=== PATIENT | male | born 1960 | race Caucasian/White ===

== ENCOUNTER 2017-05-01 09:16 | Emergency (ER) | payer BC ==
--- NOTE | 2017-05-01 09:25 | UC ---
Abdominal Pain Male HPI - HPI Summary HPI Summary: 56 YEAR OLD MALE PRESENTS WITH SEVERE LEFT FLANK PAIN. - History of Current Complaint Chief Complaint: UCGU Stated Complaint: ABDOMINAL PAIN Time Seen by Provider: 05/01/17 09:24 Severity Initially: Severe Severity Currently: Severe Pain Scale Used: 0-10 Numeric - 9/10 - Allergies/Home Medications Allergies/Adverse Reactions: Allergies Allergy/AdvReac Type Severity Reaction Status Date / Time Amlodipine [From [facility]] AdvReac Unknown Edema Verified 05/01/17 11:12 PMH/Surg Hx/FS Hx/Imm Hx - Surgical History Surgical History: Yes Surgery Procedure, Year, and Place: RIGHT KNEE ARTHROSCOPES X 3; bowel surgery endometrial reattachment; T&A; CARDIAC STENTS X 2- PATIENT WILL BRING CARDS TO BE SCANNED IN (PER CARDIAC CATH REPORT A PROMUS PREMIER STENT AND A PROMUS ELEMENT STENT WERE PLACED) - Social History Alcohol Use: Weekly Alcohol Amount: 2-3 DRINKS/WEEK Substance Use Type: None Smoking Status (MU): Former Smoker Type: Cigarettes Length of Time of Smoking/Using Tobacco: 15 years Have You Smoked in the Last Year: No When Did the Patient Quit Smoking/Using Tobacco: 25 YRS AGO - Immunization History Most Recent Influenza Vaccination: 08/31/14 Most Recent Tetanus Shot: thirty years ago Most Recent Pneumonia Vaccination: no Vaccination Up to Date: Yes Review of Systems Constitutional: Negative Skin: Negative Eyes: Negative ENT: Negative Respiratory: Negative Cardiovascular: Negative Gastrointestinal: Abdominal Pain Genitourinary: Negative Motor: Negative Neurovascular: Negative Musculoskeletal: Negative Neurological: Negative Psychological: Negative All Other Systems Reviewed And Are Negative: Yes Physical Exam Triage Information Reviewed: Yes Vital Signs: Initial Vital Signs Temp 35.7 C 05/01/17 09:19 Pulse 62 05/01/17 09:19 Resp 20 05/01/17 09:19 BP 156/88 05/01/17 09:19 Pulse Ox 99 05/01/17 09:19 Eye Exam: Normal ENT Exam: Normal Dental Exam: Normal Neck exam: Normal Neck: Positive: 1 Respiratory Exam: Normal Cardiovascular Exam: Normal Abdominal Exam: Normal Abdomen Description: Positive: CVA Tenderness (L), Guarding Musculoskeletal Exam: Normal Neurological Exam: Normal Psychological Exam: Normal Skin Exam: Normal Abd Pain Male Course/Dx - Differential Dx/Clinical Impression Provider Diagnoses: LEFT FLANK PAIN Discharge - Discharge Plan Condition: Guarded Disposition: TRANS HIGHER LVL OF CARE FAC Patient Education Materials: Kidney Stones (ED) Referrals: Michael Velasquez MD [Primary Care Provider] -
[2017-05-01 09:40] VITALS: BP 174/102
== END 2017-05-01 09:50 | disposition short-term general hospital (02) ==
LOC: UCEAST 09:16
DX: R10.9 Unspecified abdominal pain (principal); Z87.891 Personal history of nicotine dependence
CPT/HCPCS: 99214; G0463

== ENCOUNTER 2017-05-01 10:15 | Emergency (ER) | payer BC ==
[2017-05-01] MEDS ORDERED: HYDROmorphone* 1 MG/ML 1 ML SYR IV SLOW PU ONE (10:40)
[2017-05-01] MEDS ORDERED: Ketorolac INJ* 30 MG/ML 1 ML VIAL IV PUSH ONE (10:45)
[2017-05-01] MEDS ORDERED: Ondansetron INJ* 2 MG/ML VIAL IV ONE (10:45)
[2017-05-01] MEDS ORDERED: Ondansetron INJ* 2 MG/ML VIAL ONE (10:46)
[2017-05-01] MEDS ORDERED: Ketorolac INJ* 30 MG/ML 1 ML VIAL ONE (10:46)
[2017-05-01] MEDS: NS 0.9% 1000 ML* 2,000 ML IV ONE ×2 (10:47→11:27)
[2017-05-01 11:18] LABS: Hematocrit 45 % (42-52); Hemoglobin 14.6 g/dl (14.0-18.0); Mean Corpuscular HGB Conc 33 g/dl (31-36); Mean Corpuscular Hemoglobin 34 pg (27-31); Mean Corpuscular Volume 102 fL (80-94); Mean Platelet Volume 8 um3 (7.4-10.4); Red Blood Count 4.36 10^6/ul (4.0-5.4); Red Cell Distribution Width 14 % (10.5-15); White Blood Count 9.1 10^3/ul (3.5-10.8)
[2017-05-01 11:33] LABS: Albumin 4.4 g/dL (3.2-5.2); BUN/Creatinine Ratio 19.7 (8-20); Calcium 9.5 mg/dL (8.6-10.3); EGFR African American 68.9 (>60); EGFR Non-African American 53.6 (>60); Globulin 2.7 g/dL (2-4); Potassium 3.9 mmol/L (3.5-5.0); Total Bilirubin 0.7 mg/dL (0.2-1.0); Total Protein 7.1 g/dL (6.4-8.9)
--- NOTE | 2017-05-01 11:40 | RAD ---
INDICATION: Left flank pain COMPARISON: CT June 30, 2015 TECHNIQUE: Noncontrast axial source images were acquired from the level hemidiaphragms to the symphysis pubis as part of CT imaging for renal stone. Lung bases: The lung bases are clear. Liver: The liver is enlarged with findings of hepatic steatosis. Noncontrast imaging shows no evidence of a hepatic mass or ductal dilatation. Gallbladder: There are no calcified gallstones. There is no evidence of wall thickening or pericholecystic fluid.. Spleen: The spleen is normal in size. The noncontrast CT appearance is normal. There is a small splenule Pancreas: Noncontrast imaging shows no pancreatic mass or ductal dilitation. Adrenal glands: No masses are identified. Kidneys/Bladder: There is a proximal, 4 mm, left ureteral calculus producing mild to moderate obstructive findings. There are no other microcalcifications of urinary significance. There is mild left-sided perinephric stranding. Adenopathy: There is no evidence of intraperitoneal or retroperitoneal adenopathy. Evaluation is limited without oral contrast. Fluid collections: There are no free or localized fluid collections. Vessels: The aorta and iliac vessels are normal in caliber. There are no significant atherosclerotic changes. The IVC appears normal Pelvic organs: The prostate and seminal vesicles appear normal GI tract: Evaluation of the bowel is limited without oral contrast. The stomach and upper GI tract are unremarkable. The lower GI tract is remarkable for scattered diverticula of the sigmoid colon. There are no obstructive findings. The appendix is visualized and appears normal. Soft tissues: No soft tissue abnormalities of the extraperitoneal abdomen or pelvis are identified. Osseous structures: There are no acute osseous findings. There is chronic L5 spondylolysis with a minimal anterolisthesis. There is degenerative disc disease at L5-S1. There is spurring about the thoracolumbar junction. IMPRESSION: 4 MM PROXIMAL LEFT URETERAL CALCULUS WITH MILD/MODERATE OBSTRUCTIVE FINDINGS.
--- NOTE | 2017-05-01 12:29 | ED ---
GI/ HPI - HPI Summary HPI Summary: 56M w/ [place] of [place] presents with left side flank pain for a day. He admits to intense pain. He has a history of kidney stones. He denies any fever, dysuria, hematuria, frequency, urgency. He denies any diarrhea, constipation. He has a previous bowel obstruction that needed surgery pain years ago. The pain is similar to when has kidney stones in past. He admits to vomiting and nausea. - History of Current Complaint Chief Complaint: EDFlankPain Time Seen by Provider: 05/01/17 10:39 Stated Complaint: ABD PAIN - Allergy/Home Medications Allergies/Adverse Reactions: Allergies Allergy/AdvReac Type Severity Reaction Status Date / Time Amlodipine [From [facility]] AdvReac Unknown Edema Verified 05/01/17 11:12 PMH/Surg Hx/FS Hx/Imm Hx Endocrine/Hematology History: Denies: Hx Diabetes Cardiovascular History: Reports: Hx Angina, Hx Coronary Artery Disease, Hx Hypercholesterolemia, Hx Hypertension Denies: Hx Congestive Heart Failure, Hx Pacemaker/ICD Respiratory History: Reports: Hx Asthma - poss recent diagnosis, Hx Seasonal Allergies - "constant", Hx Sleep Apnea, Other Respiratory Problems/Disorders - ex-smoker GI History: Reports: Hx Obstructive Bowel Denies: Hx Ulcer History: Reports: Hx Kidney Stones Denies: Hx Acute Renal Failure, Hx Renal Disease Musculoskeletal History: Reports: Hx Arthritis - knees, back, hands, Hx Rheumatoid Arthritis, Hx Back Problems - fractures, degenerated disks, bone spurs, Hx Tendonitis - elbow Denies: Hx Scoliosis Sensory History: Reports: Hx Contacts or Glasses Denies: Hx Cataracts Opthamlomology History: Reports: Hx Contacts or Glasses Denies: Hx Cataracts Neurological History: Reports: Other Neuro Impairments/Disorders - PAIN CLINIC PT Denies: Hx Developmental Delay, Hx Headaches, Hx Migraine, Hx Nerve Disease, Hx Seizures, Hx Spinal Cord Injury, Hx Transient Ischemic Attacks (TIA) Psychiatric History: Denies: Hx Panic Disorder - Surgical History Surgery Procedure, Year, and Place: RIGHT KNEE ARTHROSCOPES X 3; bowel surgery endometrial reattachment; T&A; CARDIAC STENTS X 2- PATIENT WILL BRING CARDS TO BE SCANNED IN (PER CARDIAC CATH REPORT A PROMUS PREMIER STENT AND A PROMUS ELEMENT STENT WERE PLACED) Hx Anesthesia Reactions: No Infectious Disease History: No Infectious Disease History: Denies: Hx Clostridium Difficile, Hx Hepatitis, Hx Human Immunodeficiency Virus (HIV), Hx of Known/Suspected MRSA, Hx Shingles, Hx Tuberculosis, Hx Known/ Suspected VRE, Hx Known/Suspected VRSA, History Other Infectious Disease, Traveled Outside the [place] in Last 30 Days - Family History Known Family History: Positive: Cardiac Disease - Social History Alcohol Use: Weekly Alcohol Amount: 2-3 DRINKS/WEEK Substance Use Type: Reports: None Smoking Status (MU): Former Smoker Type: Cigarettes Length of Time of Smoking/Using Tobacco: 15 years Have You Smoked in the Last Year: No Review of Systems Negative: Fever Negative: Chest Pain Negative: Shortness Of Breath Positive: Vomiting, Nausea. Negative: Abdominal Pain, Diarrhea Positive: flank pain. Negative: dysuria, frequency All Other Systems Reviewed And Are Negative: Yes Physical Exam Triage Information Reviewed: Yes Vital Signs On Initial Exam: Initial Vitals Temp Pulse Resp BP Pulse Ox 96.7 F 68 12 153/106 99 05/01/17 10:15 05/01/17 10:15 05/01/17 10:15 05/01/17 10:15 05/01/17 10:15 Vital Signs Reviewed: Yes Appearance: Positive: Pain Distress Skin: Positive: Warm, Dry Head/Face: Positive: Normal Head/Face Inspection Eyes: Positive: Normal, Conjunctiva Clear ENT: Positive: Normal ENT inspection, Pharynx normal, TMs normal Respiratory/Lung Sounds: Positive: Clear to Auscultation, Breath Sounds Present Cardiovascular: Positive: Normal, RRR Abdomen Description: Positive: Soft, CVA Tenderness (L), Other: - tenderness on left side of abdomen Bowel Sounds: Positive: Present - [place] Coma Scale Coma Scale Total: 15 Diagnostics - Vital Signs Vital Signs Temp Pulse Resp BP Pulse Ox 05/01/17 11:02 95 05/01/17 11:01 93 05/01/17 11:00 71 17 147/119 98 05/01/17 10:50 81 05/01/17 10:47 20 05/01/17 10:33 71 22 143/92 99 05/01/17 10:20 65 153/106 100 05/01/17 10:15 96.7 F 68 12 153/106 99 - Laboratory Lab Results: Lab Results 05/01/17 05/01/17 Range/Units 11:05 11:05 WBC 9.1 (3.5-10.8) 10^3/ul RBC 4.36 (4.0-5.4) 10^6/ul Hgb 14.6 (14.0-18.0) g/dl Hct 45 (42-52) % MCV 102 H (80-94) fL MCH 34 H (27-31) pg MCHC 33 (31-36) g/dl RDW 14 (10.5-15) % Plt Count 189 (150-450) 10^3/ul MPV 8 (7.4-10.4) um3 Neut % (Auto) 87.1 H (38-83) % Lymph % (Auto) 8.7 L (25-47) % [place] % (Auto) 3.7 (1-9) % Eos % (Auto) 0.1 (0-6) % Baso % (Auto) 0.4 (0-2) % Absolute Neuts (auto) 7.9 H (1.5-7.7) 10^3/ul Absolute Lymphs (auto) 0.8 L (1.0-4.8) 10^3/ul Absolute Monos (auto) 0.3 (0-0.8) 10^3/ul Absolute Eos (auto) 0 (0-0.6) 10^3/ul Absolute Basos (auto) 0 (0-0.2) 10^3/ul Absolute Nucleated RBC 0.01 10^3/ul Nucleated RBC % 0.1 Sodium 140 (133-145) mmol/L Potassium 3.9 (3.5-5.0) mmol/L Chloride 104 (101-111) mmol/L Carbon Dioxide 25 (22-32) mmol/L Anion Gap 11 (2-11) mmol/L BUN 27 H (6-24) mg/dL Creatinine 1.37 H (0.67-1.17) mg/dL Est GFR ( Amer) 68.9 (>60) Est GFR (Non-Af Amer) 53.6 (>60) BUN/Creatinine Ratio 19.7 (8-20) Glucose 172 H (70-100) mg/dL Calcium 9.5 (8.6-10.3) mg/dL Total Bilirubin 0.70 (0.2-1.0) mg/dL AST 32 (13-39) U/L ALT 34 (7-52) U/L Alkaline Phosphatase 41 (34-104) U/L C-React Prot High Sens 1.65 mg/L Total Protein 7.1 (6.4-8.9) g/dL Albumin 4.4 (3.2-5.2) g/dL Globulin 2.7 (2-4) g/dL Albumin/Globulin Ratio 1.6 (1-3) Lipase 24 (11.0-82.0) U/L Result Diagrams: 05/01/17 11:05 05/01/17 11:05 Lab Statement: Any lab studies that have been ordered have been reviewed, and results considered in the medical decision making process. - CT abd CT Interpretation: Positive (See Comments) - IMPRESSION: 4 MM PROXIMAL LEFT URETERAL CALCULUS WITH MILD/MODERATE OBSTRUCTIVE FINDINGS. CT Interpretation Completed By: Radiologist Re-Evaluation - Re-Evaluation First Eval Change: Improved Comment: pain improved with dilaudid and morphine. dilaudid did call O2 stats to dec GIGU Course/Dx - Course Course Of Treatment: 56M w/ [place] of [place] presents with left side flank pain for a day. He admits to intense pain. He has a history of kidney stones. He denies any fever, dysuria, hematuria, frequency, urgency. He denies any diarrhea, constipation. He has a previous bowel obstruction that needed surgery pain years ago. The pain is similar to when has kidney stones in past. He admits to vomiting and nausea. CVA tenderness on left. CT shows 4mm stone. discussed dr hamilton says send home with pain meds and call office tomorrow. pain controlled. u/a normal. patient understands and agrees with plan - Diagnoses Differential Diagnoses - Male: Pyelonephritis, Ureteral Calculi, Urinary Tract Infection Provider Diagnoses: Kidney stone on left side Discharge - Discharge Plan Condition: Good Disposition: HOME Prescriptions: Ondansetron ODT TAB* [Zofran 4 MG Odt TAB*] 4 mg PO Q6H PRN #20 tab.odt PRN Reason: Nausea Tamsulosin CAP* [Flomax CAP*] 0.4 mg PO DAILY #10 cap oxyCODONE/Acetamin 5/325 MG* [Percocet 5/325 TAB*] 1 tab PO Q4H PRN #24 tab MDD 6 PRN Reason: Pain Patient Education Materials: Kidney Stones (ED) Referrals: Ross Hamilton MD [Medical Doctor] - Michael Velasquez MD [Primary Care Provider] - Additional Instructions: Take ibuprofen three times a day and narcotic as needed every 4-6 hours up two tablets Narcotic will make constipated Take Zofran every 6 hours for nausea Take Flomax daily starting tomorrow, first dose given in ED until stone expelled , make sure stand up slowly Strain urine for stone Call office tomorrow for urology follow up Return to ED if unable to manage pain at home, develop fever, severe vomiting or any new or worsening symptoms
[2017-05-01] MEDS ORDERED: Morphine INJ* 4 MG/ML 1 ML SYRINGE IV ONE (12:39)
[2017-05-01 13:22] LABS: Urine Bacteria Absent (Absent); Urine Bilirubin Negative (Negative); Urine Glucose 1+(50 mg/dL) (Negative); Urine Nitrite Negative (Negative)
[2017-05-01 13:29] VITALS: BP 148/96
== END 2017-05-01 13:57 | disposition home or self-care (01) ==
LOC: ED 10:15
DX: N20.0 Calculus of kidney (principal); Z87.891 Personal history of nicotine dependence; I10 Essential (primary) hypertension; I25.119 Atherosclerotic heart disease of native coronary artery with unspecified angina pectoris; J45.909 Unspecified asthma, uncomplicated
CPT/HCPCS: 36415; 74176; 80053; 81003; 81015; 83690; 85025; 86141; 93005; 96360; 96374; 96375; 99283; J1170; J1885; J2270; J2405

== ENCOUNTER 2017-05-03 20:05 | Emergency (ER) | payer BC ==
[2017-05-03] MEDS ORDERED: NS 0.9% 1000 ML* 1,000 ML IV ONE (20:38)
[2017-05-03] MEDS ORDERED: Ketorolac INJ* 30 MG/ML 1 ML VIAL IV ONE (20:38)
[2017-05-03 21:01] LABS: Hematocrit 41 % (42-52); Hemoglobin 13.8 g/dl (14.0-18.0); Mean Corpuscular HGB Conc 34 g/dl (31-36); Mean Corpuscular Hemoglobin 34 pg (27-31); Mean Corpuscular Volume 100 fL (80-94); Mean Platelet Volume 9 um3 (7.4-10.4); Red Blood Count 4.09 10^6/ul (4.0-5.4); Red Cell Distribution Width 14 % (10.5-15); White Blood Count 12.1 10^3/ul (3.5-10.8)
[2017-05-03 21:15] LABS: Urine Bacteria Absent (Absent); Urine Bilirubin Negative (Negative); Urine Glucose 1+(50 mg/dL) (Negative); Urine Nitrite Negative (Negative)
[2017-05-03 21:17] LABS: ALT 23 U/L (7-52); Albumin 4.1 g/dL (3.2-5.2); Alkaline Phosphatase 44 U/L (34-104); BUN/Creatinine Ratio 16.9 (8-20); Blood Urea Nitrogen 31 mg/dL (6-24); CO2 Carbon Dioxide 28 mmol/L (22-32); Calcium 9.5 mg/dL (8.6-10.3); Chloride 100 mmol/L (101-111); EGFR African American 49.3 (>60); EGFR Non-African American 38.3 (>60); Globulin 3.1 g/dL (2-4); Glucose 153 mg/dL (70-100); Sodium 136 mmol/L (133-145); Total Protein 7.2 g/dL (6.4-8.9)
[2017-05-03 21:26] LABS: Anion Gap 8 mmol/L (2-11)
--- NOTE | 2017-05-03 21:30 | ED ---
I, Oh,Kayla, scribed for Gary Bright MD on 05/03/17 at 2043 . GI/ HPI - HPI Summary HPI Summary: This 56 y/o male presents to ED for persistent left flank pain that occurred since 2 days ago and is worse since 1500 PM today. He previously visited ED 2 days ago and dx with kidney stone. Pt admits that he did not take pain med that was rx because of positive constipation. He did take IBP at 1500 PM today. PMHx includes recent dx of kidney stone, HTN, bowel obstruction x2, DE s/p cardiac stent. Plan of care involving pain control and possible transfer to higher care facility with urologist's service is discussed with patient. - History of Current Complaint Chief Complaint: EDFlankPain Time Seen by Provider: 05/03/17 20:25 Stated Complaint: FLANK PAIN Hx Obtained From: Patient, Medical Records Onset/Duration: Started Hours Ago, Atraumatic, Still Present Timing: Constant Pain Intensity: 9 Location of Pain: Flank Associated Signs and Symptoms: Positive: Constipation, Flank Pain - left Aggravating Factor(s): Nothing Alleviating Factor(s): Nothing - Allergy/Home Medications Allergies/Adverse Reactions: Allergies Allergy/AdvReac Type Severity Reaction Status Date / Time Amlodipine [From Norvasc] AdvReac Unknown Edema Verified 05/01/17 11:12 PMH/Surg Hx/FS Hx/Imm Hx Endocrine/Hematology History: Denies: Hx Diabetes Cardiovascular History: Reports: Hx Angina, Hx Coronary Artery Disease, Hx Hypercholesterolemia, Hx Hypertension Denies: Hx Congestive Heart Failure, Hx Pacemaker/ICD Respiratory History: Reports: Hx Asthma - poss recent diagnosis, Hx Seasonal Allergies - "constant", Hx Sleep Apnea, Other Respiratory Problems/Disorders - ex-smoker GI History: Reports: Hx Obstructive Bowel Denies: Hx Ulcer History: Reports: Hx Kidney Stones Denies: Hx Acute Renal Failure, Hx Renal Disease Musculoskeletal History: Reports: Hx Arthritis - knees, back, hands, Hx Rheumatoid Arthritis, Hx Back Problems - fractures, degenerated disks, bone spurs, Hx Tendonitis - elbow Denies: Hx Scoliosis Sensory History: Reports: Hx Contacts or Glasses Denies: Hx Cataracts Opthamlomology History: Reports: Hx Contacts or Glasses Denies: Hx Cataracts Neurological History: Reports: Other Neuro Impairments/Disorders - PAIN CLINIC PT Denies: Hx Developmental Delay, Hx Headaches, Hx Migraine, Hx Nerve Disease, Hx Seizures, Hx Spinal Cord Injury, Hx Transient Ischemic Attacks (TIA) Psychiatric History: Denies: Hx Panic Disorder - Surgical History Surgery Procedure, Year, and Place: RIGHT KNEE ARTHROSCOPES X 3; bowel surgery endometrial reattachment; T&A; CARDIAC STENTS X 2- PATIENT WILL BRING CARDS TO BE SCANNED IN (PER CARDIAC CATH REPORT A PROMUS PREMIER STENT AND A PROMUS ELEMENT STENT WERE PLACED) Hx Anesthesia Reactions: No Infectious Disease History: No Infectious Disease History: Denies: Hx Clostridium Difficile, Hx Hepatitis, Hx Human Immunodeficiency Virus (HIV), Hx of Known/Suspected MRSA, Hx Shingles, Hx Tuberculosis, Hx Known/ Suspected VRE, Hx Known/Suspected VRSA, History Other Infectious Disease, Traveled Outside the US in Last 30 Days - Family History Known Family History: Positive: Cardiac Disease - Social History Alcohol Use: Weekly Alcohol Amount: 2-3 DRINKS/WEEK Hx Substance Use: No Substance Use Type: Reports: None Hx Tobacco Use: Yes Smoking Status (MU): Former Smoker Type: Cigarettes Length of Time of Smoking/Using Tobacco: 15 years Have You Smoked in the Last Year: No Review of Systems Negative: Fever Positive: Other - Positive constipation Positive: flank pain - left All Other Systems Reviewed And Are Negative: Yes Physical Exam Triage Information Reviewed: Yes Vital Signs On Initial Exam: Initial Vitals Temp Pulse Resp BP Pulse Ox 98.3 F 89 18 146/93 94 05/03/17 20:16 05/03/17 20:16 05/03/17 20:16 05/03/17 20:16 05/03/17 20:16 Vital Signs Reviewed: Yes Appearance: Positive: Well-Appearing, Pain Distress - moderate discomfort Skin: Positive: Warm Eyes: Positive: SHIRIN ENT: Positive: Hearing grossly normal Neck: Positive: Supple Respiratory/Lung Sounds: Positive: Clear to Auscultation, Breath Sounds Present Cardiovascular: Positive: RRR Abdomen Description: Positive: Nontender, Soft Bowel Sounds: Positive: Present Musculoskeletal: Positive: Strength/ROM Intact Neurological: Positive: Alert, Oriented to Person Place, Time Psychiatric: Positive: Affect/Mood Appropriate Diagnostics - Vital Signs Vital Signs Temp Pulse Resp BP Pulse Ox 05/03/17 20:16 98.3 F 89 18 146/93 94 - Laboratory Lab Results: Lab Results 0705/03/17 05/03/17 Range/Units 20:55 20:55 21:04 WBC 12.1 H (3.5-10.8) 10^3/ul RBC 4.09 (4.0-5.4) 10^6/ul Hgb 13.8 L (14.0-18.0) g/dl Hct 41 L (42-52) % MCV 100 H (80-94) fL MCH 34 H (27-31) pg MCHC 34 (31-36) g/dl RDW 14 (10.5-15) % Plt Count 204 (150-450) 10^3/ul MPV 9 (7.4-10.4) um3 Neut % (Auto) 85.6 H (38-83) % Lymph % (Auto) 6.3 L (25-47) % [place] % (Auto) 7.8 (1-9) % Eos % (Auto) 0.1 (0-6) % Baso % (Auto) 0.2 (0-2) % Absolute Neuts (auto) 10.3 H (1.5-7.7) 10^3/ul Absolute Lymphs (auto) 0.8 L (1.0-4.8) 10^3/ul Absolute Monos (auto) 0.9 H (0-0.8) 10^3/ul Absolute Eos (auto) 0 (0-0.6) 10^3/ul Absolute Basos (auto) 0 (0-0.2) 10^3/ul Absolute Nucleated RBC 0 10^3/ul Nucleated RBC % 0 Sodium 136 (133-145) mmol/L Potassium TNP Chloride 100 L (101-111) mmol/L Carbon Dioxide 28 (22-32) mmol/L Anion Gap 8 (2-11) mmol/L BUN 31 H (6-24) mg/dL Creatinine 1.83 H (0.67-1.17) mg/dL Est GFR ( Amer) 49.3 (>60) Est GFR (Non-Af Amer) 38.3 (>60) BUN/Creatinine Ratio 16.9 (8-20) Glucose 153 H (70-100) mg/dL Calcium 9.5 (8.6-10.3) mg/dL Total Bilirubin 0.70 (0.2-1.0) mg/dL AST TNP ALT 23 (7-52) U/L Alkaline Phosphatase 44 (34-104) U/L Total Protein 7.2 (6.4-8.9) g/dL Albumin 4.1 (3.2-5.2) g/dL Globulin 3.1 (2-4) g/dL Albumin/Globulin Ratio 1.3 (1-3) Urine Color Yellow Urine Appearance Clear Urine pH 6.0 (5-9) Ur Specific [place] 1.017 (1.010-1.030) Urine Protein Negative (Negative) Urine Ketones Trace H (Negative) Urine Blood 1+ H (Negative) Urine Nitrate Negative (Negative) Urine Bilirubin Negative (Negative) Urine Urobilinogen Negative (Negative) Ur Leukocyte Esterase Negative (Negative) Urine WBC (Auto) Absent (Absent) Urine RBC (Auto) 1+(3-5/hpf) H (Absent) Urine Bacteria Absent (Absent) Urine Glucose 1+(50 mg/dl) H (Negative) Urine Ascorbic Acid * H (Negative) Result Diagrams: 05/03/17 20:55 05/03/17 21:39 Lab Statement: Any lab studies that have been ordered have been reviewed, and results considered in the medical decision making process. - Additional Comments Diagnostic Additional Comments: US Renal -- Left hydronephrosis. An absent ureteral jet suggested left ureteral obstruction. Re-Evaluation - Re-Evaluation First Eval Re-Evaluation Time: 23:45 Comment: MD in room to update pt on US renal imaging results. Plan of care involving transfer for urology workup is discussed with pt, and he is agreeable at this moment. GIGU Course/Dx - Course Course Of Treatment: Consult: 0012 Dr. Keller (Urology at [place]). 0034 Dr. Gutierrez, accepting doctor at [place], [place] Assessment/Plan: This 56 y/o male presents to ED for persistent left flank pain since his last ED visit for kidney stone. He admits that he did not take pain med that has been prescribed to him because of constipation. Pt is given IV NS and IV toradol for pain control. UA indicates trace ketone, 1+ blood and RBC. Blood work is wnl except for elevated WBC of 12.1, Creatinine of 1.83, and BUN of 31. US renal indicates left ureteral obstruction. Since urology is not present on-call today, plan of care involving transfer to [facility] in [place] is discussed with pt, and he is agreeable at this moment. Dr. Gutierrez is accepting doctor at [facility] in [place]. 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 - Urologist is not electrical engineering draftsperson. Discharge - Discharge Plan Condition: Fair Disposition: TRANS HIGHER LVL OF CARE FAC Referrals: Michael Velasquez MD [Primary Care Provider] - The documentation as recorded by the Ilya castillo Soohyun accurately reflects the service I personally performed and the decisions made by me, Gary Bright MD.
[2017-05-04 01:50] VITALS: BP 139/87
--- NOTE | 2017-05-04 07:42 | RAD ---
HISTORY: Left flank pain COMPARISONS: CT dated May 01, 2017 TECHNIQUE: Multiple transverse and longitudinal ultrasound images were obtained of the kidneys and bladder using grayscale and color Doppler imaging. FINDINGS: RIGHT KIDNEY: The right kidney is normal in shape, size, contour, and echogenicity. There is no hydronephrosis or nephrolithiasis. The right kidney measures 14.5 x 5.7 x 6.2 cm. LEFT KIDNEY: The left kidney is normal in shape, size, contour, and echogenicity. There is moderate pelvocaliectasis, similar to the CT of May 01, 2017 accounting for differences in technique . The left kidney measures 14.5 x 7.2 x 7 cm. BLADDER: The left ureteral jet is not visualized. AORTA AND IVC: No images are submitted of the vasculature. RETROPERITONEUM: Unremarkable. OTHER: None. IMPRESSION: MODERATE LEFT-SIDED HYDRONEPHROSIS. A LEFT URETERAL JET IS NOT VISUALIZED.
== END 2017-05-04 01:51 | disposition short-term general hospital (02) ==
LOC: ED 20:05
DX: N23 Unspecified renal colic (principal); I10 Essential (primary) hypertension; I25.2 Old myocardial infarction; Z87.891 Personal history of nicotine dependence
CPT/HCPCS: 36415; 76775; 80053; 81003; 81015; 85025; 99284; J1885

== ENCOUNTER 2018-08-21 08:38 | Day surgery (SDC) | payer BC ==
--- NOTE | 2018-08-16 18:57 | HP ---
CC: Dr. Velasquez; Dr. Meza * ADMITTING HISTORY AND PHYSICAL: DATE OF ADMISSION: 08/21/18 ADMITTING DIAGNOSES: 1. Gross hematuria. 2. Left flank pain. 3. Left renal calculi. PLANNED PROCEDURE: 1. Left stent insertion. 2. Shock-wave lithotripsy of left renal calculi. SURGEON: Dr. Cox. HISTORY OF PRESENT ILLNESS: Lopez Trimble is a 58-year-old gentleman who has had episodic gross hematuria and also episodes of left flank pain off and on for the last 5 to 6 weeks. He had been on Coumadin when I had initially evaluated him and even off the Coumadin, he has had episodes of gross hematuria. Renal sonogram initially had revealed multiple left renal calculi and also a small calculus in the left distal ureter, which subsequently has passed. He is now being brought in for management of the left renal calculi. PAST MEDICAL HISTORY: Significant for: 1. Paroxysmal atrial fibrillation. 2. History of aortic valve disorder. 3. Acquired spondylolisthesis. 4. Obstructive sleep apnea. 5. Hypertension. 6. Impaired fasting glycemia. PAST SURGICAL HISTORY: Significant for: 1. Aortic valve replacement in February 2018 (bovine bioprosthetic valve). 2. Laparotomy for bowel disorder in 2003. MEDICATIONS ON ADMISSION: Include: 1. Carvedilol 25 mg twice a day. 2. Desloratadine 5 mg daily. 3. Potassium chloride 10 mEq every day. 4. Aspirin 81 mg a day. 5. Celebrex 200 mg daily. 6. Coumadin, which has recently been stopped after his most recent visit to his city assessor. 7. Amiodarone 200 mg daily. 8. Losartan potassium/hydrochlorothiazide 160/25 one tablet daily. ALLERGIES AND INTOLERANCES: AMLODIPINE and COLCHICINE. SMOKING HISTORY: He is a former smoker who quit in 1990. PHYSICAL EXAMINATION GENERAL: Reveals a pleasant, middle-aged gentleman. VITAL SIGNS: Blood pressure is 142/86, pulse 63 per minute, oxygen saturation 97% on room air. LUNGS: Clear bilaterally. CARDIOVASCULAR EXAM: S1, S2. ABDOMEN: Soft with mild left flank tenderness. IMPRESSION: A 58-year-old gentleman with episodic gross hematuria and episodic left flank pain. PLAN: Planned procedure is left stent insertion and shock-wave lithotripsy of left renal calculi. I have discussed the procedure in detail including possible risks of bleeding, infection, incomplete fragmentation, possible injury to the kidney. All his questions have been answered. Plan is left stent insertion and lithotripsy. [id number] #: [id number]
[~2018-08-21 08:38] MED LIST: Buffered Lidocaine 0.9% SYRIN* 5 ML/SYR SYRINGE INTRADERM ONE; Sodium Citrate/Citric Acid* 15 ML UDC PO ONE
[2018-08-21] MEDS ORDERED: Buffered Lidocaine 0.9% SYRIN* 5 ML/SYR SYRINGE ONE (09:19)
[2018-08-21] MEDS ORDERED: cefTRIAXone(*) 2 GM ADDV.VIAL IVPB ONE (09:19)
[2018-08-21] MEDS ORDERED: Sodium Citrate/Citric Acid* 15 ML UDC ONE (09:19)
--- NOTE | 2018-08-21 09:21 | RAD ---
Indication: Lithotripsy. Flat and upright views of the abdomen demonstrates calcification overlying the lower pole of the left kidney. Psoas margins are intact. No organomegaly is noted. IMPRESSION: Calcification overlying the lower pole of the left kidney. This was not identified on August 14, 2018.
[2018-08-21 09:49] LABS: INR 1.02 (0.77-1.02)
[2018-08-21] MEDS ORDERED: Iohexol 180 (CONTRAST) 10 ML SDV IV ONE (10:35)
[2018-08-21] MEDS ORDERED: fentaNYL* 50 MCG/ML 2 ML VIAL (100 MCG VIAL) ONE (11:15)
[2018-08-21] MEDS ORDERED: Propofol* 10 MG/ML 20 ML BTL IV PUSH ONE ×2 (11:17→11:44)
[2018-08-21] MEDS ORDERED: Lidocaine 2% PF * 5 ML VIAL ONE (11:17)
[2018-08-21] MEDS ORDERED: Furosemide IV* 10 MG/ML 2 ML VIAL (20 MG) ONE (11:20)
[2018-08-21] MEDS ORDERED: Iohexol 300 (CONTRAST) 100 ML SDV IV ONE ×2 (11:46→12:07)
[2018-08-21] MEDS ORDERED: Diatrizoate -DILUTE(CONTRAST) 300 ML BOTTLE BLADDER ONE ×2 (11:48)
[2018-08-21] MEDS ORDERED: Naloxone* 0.4 MG/ML 1 ML VIAL IV PRN (12:20)
[2018-08-21] MEDS ORDERED: oxyCODONE/Acetamin 5/325 MG* TAB PO PRN ×2 (13:21)
[2018-08-21] MEDS ORDERED: LR @ 150 MLS/HR IV SCH (14:00)
[2018-08-21] MEDS ORDERED: Gentamicin ADULT (*) 160 MG in NS 0.9% 100 ML* 100 ML IVPB ONE (14:00)
[2018-08-21] MEDS ORDERED: Labetalol IV* 5 MG/ML 20 ML VIAL ONE (14:14)
[2018-08-21] MEDS ORDERED: Acetaminophen TAB* 325 MG ONE (14:14)
[2018-08-21] MEDS ORDERED: hydrALAZINE IV* 20 MG/ML VIAL ONE (15:11)
[2018-08-21 15:59] VITALS: BP 147/86
--- NOTE | 2018-08-21 16:29 | RAD ---
HISTORY: post op COMPARISONS: August 21, 2013 at 8:30 AM VIEWS: Frontal views of the abdomen. FINDINGS: BOWEL: There is a nonspecific bowel gas pattern, with nondilated small bowel gas noted. CALCULI: The left calculus noted on the previous examination is not clearly visualized, though evaluation is limited by lung bowel. There has been interval placement of left ureteral stent. BONES AND SOFT TISSUES: Mild degenerative changes are noted. OTHER FINDINGS: The lung bases are clear. There is no subphrenic gas. IMPRESSION: LEFT URETERAL STENT
--- NOTE | 2018-08-22 04:58 | OP ---
DATE OF OPERATION: 08/21/18 - [facility] DATE OF : 58 SURGEON: Jatinder Cox MD ANESTHESIOLOGIST: Tesfaye Reddy DO ANESTHESIA: General. PRE-OP DIAGNOSES: 1. Left renal calculus. 2. Gross hematuria. POST-OP DIAGNOSES: 1. Left renal calculus. 2. Gross hematuria. OPERATIVE PROCEDURE: 1. Cystoscopy, left retrograde pyelogram, and left stent insertion. 2. Shockwave lithotripsy of left renal calculus. INDICATIONS: Lopez Trimble is a 58-year-old gentleman, who has had episodic gross hematuria secondary to left renal calculi. He is now being brought in for treatment of the same. I have discussed the procedure of lithotripsy in detail including possible risks of bleeding, infection, incomplete fragmentation , and possible injury to the kidney. He appears to understand and wishes to proceed as planned. COMPLICATIONS: None. POSTOPERATIVE CONDITION: Stable. STENT USED: 8-Samoan stent, left ureter. DESCRIPTION OF PROCEDURE: After induction of general anesthesia, the patient was placed in dorsal lithotomy position. Sequential compression devices were in place and functioning. Initial cystoscopy revealed a normal appearing urethra , a mildly enlarged prostate, and a normal appearing bladder. There was a small benign appearing protuberance noted in the mid trigone, but no evidence of any suspicious bladder lesions noted. Left retrograde pyelogram revealed a filling defect in the left renal pelvis consistent with the calculus. An 8-Samoan stent was introduced and positioned under fluoroscopy with good proximal and distal positioning obtained. Next, the patient was placed on the lithotripsy table in supine position. The calculus which was within the loop of the stent was localized using fluoroscopy and shockwave lithotripsy was commenced at a rate of 60 shocks per minute. After the initial 300 shocks, there was pause in lithotripsy for several minutes in an effort to minimize any potential trauma to the kidney. Lithotripsy was then resumed and periodic imaging revealed good localization and fragmentation. A total of 1600 shocks were administered. The patient tolerated the procedure satisfactorily and was transferred back to the recovery area in stable condition. [id number] #: [id number] MTDD
== END 2018-08-21 16:13 | disposition home or self-care (01) ==
LOC: OR 08:38
PROVIDERS: ATTEND Urology
DX: N20.0 Calculus of kidney (principal); R31.0 Gross hematuria; I48.0 Paroxysmal atrial fibrillation; I10 Essential (primary) hypertension; G47.33 Obstructive sleep apnea (adult) (pediatric); R73.01 Impaired fasting glucose; I35.8 Other nonrheumatic aortic valve disorders; Z87.891 Personal history of nicotine dependence; Z79.01 Long term (current) use of anticoagulants
CPT/HCPCS: 36415; 74018; 85610; A9270-GY; C1876; J0360; J0696; J1580; J1940; J2704; J3010

== ENCOUNTER 2018-10-10 19:13 | Emergency (ER) | payer BC ==
--- OUTSIDE RECORDS SUMMARY | 2018-10-10 19:31 | XMS REPORT ---
:1960 External Reference #:[id number] Author Organization [facility] Address [address] [place] [address] Phone [phone] Care Team Providers Name Role Phone Michael Velasquez MD Primary Care Physician Unavailable Payers Type Date Identification Numbers Payment Provider Subscriber Commercial Effective: Policy Number: CORI Lenin Danielson 2015 [id number] PayID: [id number] [address] [address] [place] [address] Medigap Part B Effective: 2009 Policy Number: BS Jania KULDEEP Danielson [id number] Expires: 2011 PayID: [id number] [address] [address] [place] [address] Problems Date Description Provider Status Onset: 10/18/2011 Obesity Jes Galarza M.D. Active Onset: 10/18/2011 Benign essential hypertension Jes Galarza M.D. Active Onset: 10/18/2011 Disorder of lumbar disc Jes Galarza M.D. Active Onset: 10/18/2011 Allergic rhinitis Jes Galarza M.D. Active Onset: 06/13/2012 Mitral valve disorder Michael Velasquez M.D. Active Onset: 09/27/2012 Mixed hyperlipidemia Michael Velasquez M.D. Active Onset: 12/21/2013 Coronary arteriosclerosis Heena Meza M.D. Active Onset: 12/21/2013 Aortic valve disorder Heena Meza M.D. Active Onset: 12/24/2014 Old myocardial infarction Heena Meza M.D. Active Onset: 06/26/2015 Impaired fasting glycaemia Jes Galarza M.D. Active Onset: 06/26/2015 Impaired fasting glycaemia Jes Galarza M.D. Active Onset: 10/14/2015 Essential hypertension Heena Meza M.D. Active Onset: 11/28/2015 Degeneration of lumbar Michael Velasquez M.D. Active intervertebral disc Onset: 01/21/2016 Thoracic and lumbosacral neuritis Michael Velasquez M.D. Active Onset: 02/18/2016 Displacement of lumbar Seferino Peña M.D. Active intervertebral disc without myelopathy Onset: 02/18/2016 Acquired spondylolisthesis Seferino Peña M.D. Active Onset: 11/10/2016 Cervical disc disorder Michael Velasquez M.D. Active Onset: 11/10/2016 Disorder of skin AND/OR Michael Velasquez M.D. Active subcutaneous tissue Onset: 11/10/2016 Other insomnia Michael Velasquez M.D. 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 Active art w unsp ang pctrs Onset: 12/07/2016 Asthma without status asthmaticus Michael Velasquez M.D. Active Onset: 12/07/2016 Obstructive sleep apnea syndrome Michael Velasquez M.D. Active Onset: 12/29/2016 Dyspnea Michael Velasquez M.D. Active Onset: 03/02/2017 Polyarthropathy Michael Velasquez M.D. Active Onset: 03/17/2018 Heart valve replacement Heena Meza M.D. Active Onset: 03/17/2018 Paroxysmal atrial fibrillation Heena Meza M.D. Active Onset: 03/17/2018 Edema Heena Meaz M.D. Active Onset: 09/27/2012 Blood chemistry abnormal Michael Velasquez M.D. Resolved Resolved: 07/31/2014 Onset: 06/11/2013 Arthralgia of the lower leg Michael Velasquez M.D. 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 Cigarette Use Quit 20 Years Ago ETOH Use Occasionally consumes alcohol Recreational Drug Use Never Used Drugs Smoking Patient is a former smoker Quit [id number] Daily Caffeine Consumes on average 36oz of soda per day Daily Caffeine consumes chocolate occasionally Exercise Type/Frequency Exercises regularly Allergies, Adverse Reactions, Alerts Date Description Reaction Status Severity Comments 12/07/2016 Amlodipine LE edema active 03/28/2018 Colchicine active severe diarrhea 06/13/2012 NKDA inactive Medications Medication Date Status Form Strength Qnty SIG Indications Ordering Provider Spironolactone 09/11 Active Tablets 25mg 90tab 1 by mouth I10 Heena s every day Rosa Meza Valsartan-Hydroch 08/04 Active Tablets 160-25mg 90tab 1 tab by Diane Feliciano lorothiazide s mouth [place], daily N.P. Carvedilol 06/02 Active Tablets 25mg 180ta 1 tab by Diane Feliciano bs mouth Kulwant, twice a N.P. day Desloratadine 12/21 Active Tablets 5mg 90tab 1 by mouth Gómez s every day Josh Calhoun M.D.,FACP Cpap Mask And 12/07 Active Device 1unit cpap G47.33 Ellis s supplies - Ritter M.D. cushion, tubing, filters, for sleep apnea dx 780.57 Nitrostat 07/26 Active Tablets Sub 0.4mg 25tab one sl s q5min up [place], to 3 doses M.D. as needed Aspirin 11/05 Active Tablets 81mg 1 po qd Ordering Provider Nasonex 06/29 Active Suspension 50mcg/Act 51gm 1 sprays to each Ron rodriguez M.D. daily Celecoxib 06/29 Active Capsules 200mg 90cap Take 1 s Capsule [place]ara Daily With , Rosa Food Garlic Active Capsules 1000mg 1 cap po Unknown /0000 daily Fish Oil + D3 Active Capsules 7473-4255 1 cap po Unknown /0000 mg-Unit daily Glucosamine Active 1500mg/12 1 tablet Unknown Chondroitin /0000 00mg po twice daily Am/PM Multi Vitamin Active Tablets 1 tablet Unknown Daily ( po daily To Centrum Silver ) Coq-10 Active Capsules 100mg 1 capsule by mouth daily Coumadin Active Tablets 2mg as directed ( [place], taking 2 M.D. tablets ( 4mg) 7x day per week) adjustment [employer] Amiodarone HCL Active Tablets 200mg 60tab 1 tab by Diane Feliciano / s mouth Kulwant, daily. N.P. Diphenhydramine-A Active Tablets 25-500mg prn Unknown pap (Sleep) Acetaminophen Active Tablets 325mg 2 tablets by mouth every 8 hours as needed for pain/fever Losartan 08/03 Hx Tablets 160-25mg 30tab 1 by mouth Diane Feliciano Potassium/Hydroch s every day Kulwant lorothiazide - N.P. 08/04 Atacand 05/16 Hx Tablets 16mg 90tab 1 tab by Heena s mouth Susana, - every day. M.D. 06/07 Hydrochlorothiazi 04/24 Hx Tablets 25mg 90tab 1 by mouth I10 Heena s every day Susana, - M.D. 06/07 Carvedilol 04/20 Hx Tablets 12.5mg 180ta 2 tabs by Diane Feliciano /2017 [facility] Kulwant, - twice a N.P. Carvedilol 04/12 Hx Tablets 6.25mg 180ta 2 by mouth Heena bs twice a [place], - day M.D. 04/20 Cartia XT 04/05 Hx Caps ER 120mg 30cap once daily 24HR s Ron - , M.D. 08/03 Colchicine 03/20 Hx Capsules 0.6mg 180ca take one Rafa ps by mouth Child - once day Toby, 03/27 M.D., FACC, FASNC Ocycodone 03/17 Hx Tablets 5mg 30tab 1-2 tabs Heena -Acetaminophen 5 s by mouth [place], 325 - every 4-6 M.D. 03/28 hours needed(nev er filled) Diovan 03/16 Hx Tablets 80mg 180ta 2 by mouth Diane S. /2017 bs every day Kulwant, - N.P. 05/16 Lasix 03/16 Hx Tablets 20mg 30tab 1 by mouth I10 s every Child - Tuesday Luis, 04/24 M.D., and [facility] Rosuvastatin 06/22 Hx Tablets 5mg 90tab take 1 E78.2 s tablet Pachikara - once daily , M.D. 04/05 at bedtime- on hold Cardizem CD 03/02 Hx Caps ER 180mg 90cap once daily I10 24HR s (pt Pachikara - stopped , M.D. 03/03 taking) Montelukast 12/29 Hx Tablets 10mg 30tab once daily R06.02 Ellis Sodium s (not Pachikara - taking) , M.D. 10/05 Proair HFA 12/07 Hx Aerosol 108(90Bas 25.5g 2 puffs ih J45.909 e) m every 4 Pachikara - mcg/Act hours as , M.D. 10/05 needed (not taking) Tizanidine HCL 11/10 Hx Capsules 4mg 30cap 1 by mouth M50.10 s at bedtime Pachikara - (not , M.D. 04/20 taking) Rosuvastatin 04/23 Hx Tablets 5mg 90tab Take 1 s Tablet [place]ara - Once Daily , M.D. 03/16 AT Bedtime /2016 Diazepam 02/05 Hx Tablets 5mg 45tab 1 tab M51.16 s every 8h Pachikara - prrn , M.DEsther 04/23 Medrol ([place]) 02/02 Hx Tablets 4mg 1tabs as Other directed Ordering - Provider 02/17 Valium 02/02 Hx Tablets 5mg 14tab 1 tab tid Unknown s prn - 02/11 Tizanidine HCL 01/20 Hx Tablets 4mg 30tab twice a M51.16 s day Ron - , M.DEsther 01/20 Meloxicam 01/20 Hx Tablets 15mg 30tab once daily M51.16 s with food Ron Conner M.D. 02/05 Tizanidine HCL 01/20 Hx Tablets 4mg 30tab twice a M51.16 s day as [place]ikara - needed , M.DEsther 02/05 Potassium 03/20 Hx Tablets ER 10Meq 90tab 1 by I10 Heena Chloride ER s mouth [place], - every day M.D. 09/11 Klor-Con 10 12/24 Hx Tablets ER 10Meq 90tab 1 tablets 401.1 Heena s by mouth Susana, - daily . M.D. 03/20 Metoprolol 11/15 Hx Tablets ER 50mg 180ta 1 by mouth Heena Succinate 24HR bs twice a [place], - day M.D. 12/30 Lipitor 11/15 Hx Tablets 20mg 90tab 1 tablet 3 Heena s times per [place], - week (on M.D. 04/23 hold 01/21) Lipitor 11/08 Hx Tablets 20mg one tab po qhs Ordering - Provider 11/15 Plavix 11/05 Hx Tablets 75mg 90tab 1 by mouth s every day [place], - M.D. 12/24 Metoprolol 11/05 Hx Tablets ER 50mg 30tab 1 tab am, Other Succinate 24HR s 1/2 tab pm Ordering - Provider 11/15 Lipitor 11/05 Hx Tablets 10mg 100ta 1 po hs bs Ordering - Provider 11/08 Nitroglycerin 11/05 Hx Tablets Sub 1/150 50tab 1 sl s q5mins x3 Ordering - prn for Provider 07/25 chest pain Garlic 10/18 Hx Capsules 450mg 1 po qd Jes /2013 Dalila Galarza M.D. 06/26 Xyzal 10/18 Hx Tablets 5mg 90tab 1 po daily 477.9 s as needed Ron Conner M.D. 06/11 Diovan HCT 06/29 Hx Tablets 160-25mg 90tab 1/2 tablet Michael SEsther s by mouth [place], - every day DO [facility] 03/16 Amlodipine 06/29 Hx Tablets 10mg 90tab 1 po qd Michael Besylate s Rno Conner M.D. 07/31 Fexofenadine HCL 06/29 Hx Tablets 60mg 60tab take one Michael s tablet by Ron - Rosa dumont 07/31 twice day as needed Multivitamin & 06/29 Hx Liquid 1 per day Michael Mineral Ron Conner M.D. 06/26 Glucosamine 06/29 Hx Capsules 1500Com 1 po qd Michael Chondroitin 1500 Ron Conner M.D. 06/26 Fish Oil 06/29 Hx Capsules 1000mg 1 capsule Michael Concentrate qd Ron Conner M.D. 06/26 Levocetirizine Hx Tablets 5mg 90tab 1 by mouth Michael Dihydrochloride / s every day Ron Conner M.D. 12/21 Acetaminophen Hx 500mg 2 tablet Unknown /0000 po q Am, - with an 03/16 add 2 tablet afternoon if needed used for discomfort in back Cyclobenzaprine Hx Tablets 10mg one by Unknown HCL /0000 mouth - three 01/20 times day as needed spasm Gabapentin Hx Capsules 300mg 1 by mouth Unknown /0000 two times - a day 04/23 Tramadol HCL Hx Tablets 50mg 1-2 Unknown /0000 tablets - every 6 /24 hours needed Metoprolol Hx Tablets ER 50mg 90tab 1 by mouth Heena Succinate ER /0000 24HR s every Susana, - evening M.DEsther 03/14 Losartan Hx Tablets 25mg 1/2 by Unknown Potassium /0000 mouth - every day 06/22 Acetaminophen Hx Solution 325mg/10. 2 tabs Unknown /0000 15ML every 4 - hours as 03/16 needed for pain Metoprolol Hx Tablets 50mg 1/2 by Unknown Tartrate /0000 mouth - twice 04/14 Furosemide 0000 Hx Tablets 40mg 1 by mouth Unknown /0000 every day - for 5 days 03/16 ([place]'s /2017 re prescribed on 03/15/18 for 5 days) Centrum Silver 00/00 Hx Tablets 1 by mouth Unknown /0000 every day - 03/16 Medications Administered in Office Medication Date Status Form Strength Qnty SIG Indications Ordering Provider Randi Administered Injection Kait 80MG Keegan Townsend M.D. Immunizations CPT Code Status Date Vaccine Reaction Lot # [id number] Given 11/10/2016 Influenza Virus Vaccine, no immediatae reaction [id number] Quadrivalent, Split Virus, [place] .. [place] [id number] Given 08/08/2015 Influenza Virus Vaccine, [id number] Quadrivalent, Split, Preservative Free 31934 Given 07/31/2014 Influenza Virus Vaccine, [id number] Quadrivalent, Split, Preservative Free [id number] Given 08/29/2013 Flu Vaccine Split Virus [id number] Preservative Free For Indiv 3Yr Older [id number] Given 07/26/2012 Fluzone Vaccine Vital Signs Date Vital Result Comment 09/11/2018 Height 71 inches 5'11" Weight 277.00 lb with shoes Heart Rate 64 /min BP Systolic Sitting 164 mmHg lue reg cuff BP Diastolic Sitting 98 mmHg lue reg cuff BP Systolic Standing 160 mmHg lue reg cuff BP Diastolic Standing 98 mmHg lue reg cuff Respiratory Rate 12 /min BMI (Body Mass Index) 38.6 kg/m2 Ejection Fraction 55-60% echo. 04/26/2018 08/04/2018 Height 71 inches 5'11" Weight 267.00 lb Heart Rate 65 /min BP Systolic Sitting 130 mmHg BP Diastolic Sitting 85 mmHg BP Systolic Standing 120 mmHg BP Diastolic Standing 90 mmHg Respiratory Rate 14 /min Pain Level 0 at this time O2 % BldC Oximetry 97 % BMI (Body Mass Index) 37.2 kg/m2 06/28/2018 Height 71 inches 5'11" Weight 271.00 lb Heart Rate 69 /min BP Systolic Sitting 142 mmHg BP Diastolic Sitting 93 mmHg Body Temperature 97.8 F O2 % BldC Oximetry 95 % BMI (Body Mass Index) 37.8 kg/m2 06/08/2018 Height 71 inches 5'11" Weight 270.19 lb Heart Rate 70 /min BP Systolic Sitting 128 mmHg lue lg cuff BP Diastolic Sitting 80 mmHg lue lg cuff BP Systolic Standing 150 mmHg BP Diastolic Standing 100 mmHg Respiratory Rate 16 /min BMI (Body Mass Index) 37.7 kg/m2 Ejection Fraction 55-60% 04/26/2018 echo 05/12/2018 Height 71 inches 5'11" Weight 270.00 lb with shoes Heart Rate 56 /min BP Systolic Sitting 130 mmHg Lue lg cuff BP Diastolic Sitting 90 mmHg Lue lg cuff BP Systolic Standing 150 mmHg Lue lg cuff BP Diastolic Standing 90 mmHg Lue lg cuff Respiratory Rate 16 /min BMI (Body Mass Index) 37.7 kg/m2 Ejection Fraction 55-60% date 11/21/17 ECHO 04/28/2018 Height 71 inches 5'11" Weight 266.00 lb Heart Rate 88 /min BP Systolic Sitting 168 mmHg lue lg cuff BP Diastolic Sitting 80 mmHg lue lg cuff BP Systolic Standing 138 mmHg lue lg cuff BP Diastolic Standing 70 mmHg lue lg cuff Respiratory Rate 16 /min BMI (Body Mass Index) 37.1 kg/m2 Ejection Fraction 55-60% 11/18/2017 echo 04/24/2018 Height 71 inches 5'11" Weight 271.00 lb w/ shoes Heart Rate 72 /min BP Systolic Sitting 134 mmHg Lue lg cuff BP Diastolic Sitting 86 mmHg Lue lg cuff BP Systolic Standing 130 mmHg Lue BP Diastolic Standing 86 mmHg Lue Respiratory Rate 16 /min BMI (Body Mass Index) 37.8 kg/m2 Ejection Fraction 55-60% as of 11/18/17 echo 04/18/2018 Height 71 inches 5'11" Heart Rate 72 /min BP Systolic 173 mmHg home cuff BP Diastolic 112 mmHg home cuff BP Systolic Sitting 152 mmHg aaron reg cuff BP Diastolic Sitting 76 mmHg aaron reg cuff BP Systolic Standing 148 mmHg aaron reg cuff BP Diastolic Standing 80 mmHg aaron reg cuff 04/05/2018 Height 71 inches 5'11" Weight 270.00 lb Heart Rate 63 /min BP Systolic 167 mmHg BP Diastolic 85 mmHg O2 % BldC Oximetry 96 % BMI (Body Mass Index) 37.7 kg/m2 03/28/2018 Height 71 inches 5'11" Weight 268.00 lb no shoes Heart Rate 68 /min BP Systolic Sitting 144 mmHg Lue large cuff BP Diastolic Sitting 84 mmHg Lue large cuff BP Systolic Standing 132 mmHg Lue BP Diastolic Standing 90 mmHg Lue Respiratory Rate 16 /min BMI (Body Mass Index) 37.4 kg/m2 Ejection Fraction 55-60% 11/18/17 03/21/2018 Height 71 inches 5'11" Weight 265.00 lb with shoes Heart Rate 56 /min BP Systolic Sitting 140 mmHg Lue lg cuff BP Diastolic Sitting 80 mmHg Lue lg cuff BP Systolic Standing 128 mmHg Lue lg cuff BP Diastolic Standing 80 mmHg Lue lg cuff Respiratory Rate 16 /min BMI (Body Mass Index) 37.0 kg/m2 Ejection Fraction 55-60% date 11/18/17 ECHO 03/17/2018 Height 71 inches 5'11" Weight 276.00 lb with shoes Heart Rate 62 /min BP Systolic Sitting 130 mmHg Lue lg cuff BP Diastolic Sitting 94 mmHg Lue lg cuff BP Systolic Standing 160 mmHg Lue lg cuff BP Diastolic Standing 100 mmHg Lue lg cuff BMI (Body Mass Index) 38.5 kg/m2 12/07/2017 Height 71 inches 5'11" Weight 272.00 lb Heart Rate 74 /min BP Systolic 163 mmHg Lue pt own cuff BP Diastolic 104 mmHg Lue pt own cuff BP Systolic Sitting 152 mmHg Lue large cuff BP Diastolic Sitting 92 mmHg Lue large cuff BP Systolic Standing 152 mmHg Lue large cuff BP Diastolic Standing 96 mmHg Lue large cuff Respiratory Rate 16 /min BMI (Body Mass Index) 37.9 kg/m2 12/01/2017 Height 70 inches 5'10" Weight 268.00 lb Heart Rate 84 /min BP Systolic Sitting 126 mmHg Lue large cuff BP Diastolic Sitting 82 mmHg Lue large cuff BP Systolic Standing 122 mmHg Lue BP Diastolic Standing 80 mmHg Lue Respiratory Rate 18 /min BMI (Body Mass Index) 38.4 kg/m2 Ejection Fraction 55-60% 11/18/17 10/05/2017 Weight 272.00 lb Heart Rate 76 /min BP Systolic 128 mmHg BP Diastolic 80 mmHg Body Temperature 97.4 F O2 % BldC Oximetry 96 % 06/22/2017 Height 70 inches 5'10" Weight 265.00 lb Heart Rate 73 /min BP Systolic 136 mmHg BP Diastolic 80 mmHg Body Temperature 96.9 F O2 % BldC Oximetry 96 % BMI (Body Mass Index) 38.0 kg/m2 06/03/2017 Height 70 inches 5'10" Weight 259.00 lb Heart Rate 64 /min BP Systolic Sitting 110 mmHg Rue large cuff BP Diastolic Sitting 74 mmHg Rue large cuff BP Systolic Standing 104 mmHg Rue BP Diastolic Standing 78 mmHg Rue Respiratory Rate 16 /min BMI (Body Mass Index) 37.2 kg/m2 Ejection Fraction 55-60% 11/18/16 03/16/2017 Weight 277.00 lb Heart Rate 68 /min BP Systolic Sitting 120 mmHg BP Diastolic Sitting 90 mmHg O2 % BldC Oximetry 97 % 03/02/2017 Weight 277.25 lb Heart Rate 75 /min BP Systolic 124 mmHg BP Diastolic 68 mmHg Body Temperature 97.2 F O2 % BldC Oximetry 96 % 12/29/2016 Height 70 inches 5'10" Weight 273.00 lb Heart Rate 64 /min BP Systolic 120 mmHg BP Diastolic 98 mmHg Body Temperature 97.7 F O2 % BldC Oximetry 98 % BMI (Body Mass Index) 39.2 kg/m2 12/21/2016 Height 70 inches 5'10" Weight 274.00 lb Heart Rate 86 /min BP Systolic Sitting 118 mmHg right arm, large cuff BP Diastolic Sitting 82 mmHg right arm, large cuff BP Systolic Standing 110 mmHg right arm, large cuff BP Diastolic Standing 78 mmHg right arm, large cuff Respiratory Rate 20 /min BMI (Body Mass Index) 39.3 kg/m2 Ejection Fraction 55-60% 11/18/16 12/07/2016 Weight 277.25 lb Heart Rate 73 /min BP Systolic Sitting 118 mmHg BP Diastolic Sitting 68 mmHg Body Temperature 97.0 F O2 % BldC Oximetry 94 % 11/16/2016 Height 70 inches 5'10" Weight 274.00 lb with shoes Heart Rate 80 /min BP Systolic Sitting 144 mmHg Lue large cuff BP Diastolic Sitting 90 mmHg Lue large cuff BP Systolic Standing 142 mmHg Lue large cuff BP Diastolic Standing 98 mmHg Lue large cuff Respiratory Rate 18 /min BMI (Body Mass Index) 39.3 kg/m2 Ejection Fraction 60-65% 06/12/15 11/10/2016 Height 70 inches 5'10" Weight 274.00 lb Heart Rate 70 /min BP Systolic 120 mmHg BP Diastolic 70 mmHg Body Temperature 98.2 F O2 % BldC Oximetry 96 % BMI (Body Mass Index) 39.3 kg/m2 04/23/2016 Weight 272.00 lb Heart Rate 68 /min BP Systolic Sitting 128 mmHg BP Diastolic Sitting 84 mmHg Respiratory Rate 15 /min Body Temperature 98.0 F O2 % BldC Oximetry 98 % 03/15/2016 Height 70.25 inches 5'10.25" Weight 273.00 lb Heart Rate 78 /min BP Systolic Sitting 126 mmHg BP Diastolic Sitting 80 mmHg Pain Level 2 BMI (Body Mass Index) 38.9 kg/m2 02/18/2016 Height 70.25 inches 5'10.25" Weight 273.00 lb Heart Rate 86 /min BP Systolic Sitting 140 mmHg BP Diastolic Sitting 88 mmHg Pain Level 5 BMI (Body Mass Index) 38.9 kg/m2 02/06/2016 Height 70.25 inches 5'10.25" Weight 275.00 lb Heart Rate 93 /min BP Systolic 138 mmHg BP Diastolic 82 mmHg Body Temperature 98.4 F O2 % BldC Oximetry 96 % BMI (Body Mass Index) 39.2 kg/m2 01/21/2016 Weight 279.50 lb Heart Rate 71 /min BP Systolic Sitting 134 mmHg BP Diastolic Sitting 81 mmHg Body Temperature 98.6 F Pain Level 5 O2 % BldC Oximetry 96 % 11/28/2015 Height 70.25 inches 5'10.25" Weight 280.00 lb Heart Rate 78 /min BP Systolic Sitting 129 mmHg BP Diastolic Sitting 85 mmHg Body Temperature 96.9 F O2 % BldC Oximetry 96 % BMI (Body Mass Index) 39.9 kg/m2 10/14/2015 Height 70.25 inches 5'10.25" Weight 277.00 lb with shoes Heart Rate 70 /min BP Systolic Sitting 132 mmHg LA, Lg cuff BP Diastolic Sitting 94 mmHg LA, Lg cuff BP Systolic Standing 130 mmHg LA BP Diastolic Standing 94 mmHg LA Respiratory Rate 16 /min BMI (Body Mass Index) 39.5 kg/m2 Ejection Fraction 60-65% 06/12/15 06/27/2015 Height 70.25 inches 5'10.25" Weight 266.00 lb with shoes Heart Rate 62 /min BP Systolic Sitting 120 mmHg LA lg cuff BP Diastolic Sitting 80 mmHg LA lg cuff BP Systolic Standing 120 mmHg LA lg cuff BP Diastolic Standing 82 mmHg LA lg cuff Respiratory Rate 16 /min BMI (Body Mass Index) 37.9 kg/m2 Ejection Fraction 60-65% date 06/12/15 ECHO 06/26/2015 Weight 268.00 lb Heart Rate 80 /min BP Systolic Sitting 133 mmHg BP Diastolic Sitting 86 mmHg 12/24/2014 Height 70.25 inches 5'10.25" Weight 260.31 lb no shoes Heart Rate 74 /min BP Systolic Sitting 126 mmHg LA large cuff BP Diastolic Sitting 88 mmHg LA large cuff BP Systolic Standing 122 mmHg LA BP Diastolic Standing 86 mmHg LA Respiratory Rate 16 /min BMI (Body Mass Index) 37.1 kg/m2 09/03/2014 Weight 266.00 lb Heart Rate 74 /min BP Systolic Sitting 110 mmHg BP Diastolic Sitting 60 mmHg Body Temperature 98.1 F 07/31/2014 Weight 276.00 lb Heart Rate 66 /min BP Systolic Sitting 130 mmHg BP Diastolic Sitting 84 mmHg 05/15/2014 Heart Rate 78 /min BP Systolic Sitting 132 mmHg L arm Large cuff BP Diastolic Sitting 90 mmHg L arm Large cuff BP Systolic Standing 128 mmHg BP Diastolic Standing 90 mmHg Respiratory Rate 18 /min 12/21/2013 Height 610.5 inches 50'10.50" Weight 263.00 lb without shoes BP Systolic Sitting 152 mmHg LA Lg cuff BP Diastolic Sitting 102 mmHg LA Lg cuff BP Systolic Standing 148 mmHg LA lg cuff BP Diastolic Standing 104 mmHg LA lg cuff Respiratory Rate 17 /min BMI (Body Mass Index) 0.5 kg/m2 11/15/2013 Height 71 inches 5'11" Weight 261.50 lb Heart Rate 80 /min Regular BP Systolic Sitting 122 mmHg His machine: 125/88 BP Diastolic Sitting 90 mmHg His machine: 125/88 BMI (Body Mass Index) 36.5 kg/m2 10/18/2013 Weight 260.00 lb 06/11/2013 Weight 260.50 lb Heart Rate 69 /min BP Systolic Sitting 132 mmHg BP Diastolic Sitting 86 mmHg 10/30/2012 Height 70.25 inches 5'10.25" Weight 270.00 lb Heart Rate 80 /min BP Systolic Sitting 138 mmHg BP Diastolic Sitting 82 mmHg BMI (Body Mass Index) 38.5 kg/m2 09/27/2012 Height 70.25 inches 5'10.25" Weight 265.00 lb Heart Rate 94 /min BP Systolic Sitting 138 mmHg BP Diastolic Sitting 82 mmHg BMI (Body Mass Index) 37.7 kg/m2 07/31/2012 Height 70.25 inches 5'10.25" Weight 258.00 lb Heart Rate 80 /min BP Systolic Sitting 128 mmHg BP Diastolic Sitting 94 mmHg BMI (Body Mass Index) 36.8 kg/m2 06/13/2012 Height 70.25 inches 5'10.25" Weight 265.00 lb Heart Rate 102 /min BP Systolic Sitting 126 mmHg BP Diastolic Sitting 84 mmHg BMI (Body Mass Index) 37.7 kg/m2 10/18/2011 Height 70.25 inches 5'10.25" Weight 257.50 lb Heart Rate 80 /min BP Systolic Sitting 100 mmHg BP Diastolic Sitting 80 mmHg BMI (Body Mass Index) 36.7 kg/m2 06/29/2011 Height 70.75 inches 5'10.75" Weight 274.00 lb Heart Rate 80 /min BP Systolic Sitting 148 mmHg BP Diastolic Sitting 96 mmHg BMI (Body Mass Index) 38.5 kg/m2 Results Test Date Test Result H/L Range Note Inr/Protime 08/21/2018 Inr 1.02 0.77-1.02 CBC Auto Diff 08/04/2018 White Blood Count 4.6 10^3/uL 3.5-10.8 Red Blood Count 4.45 10^6/uL 4.00-5.40 Hemoglobin 15.0 g/dL 14.0-18.0 Hematocrit 44 % 42-52 Mean Corpuscular Volume 98 fL High 80-94 Mean Corpuscular Hemoglobin 34 pg High 27-31 Mean Corpuscular HGB Conc 34 g/dL 31-36 Red Cell Distribution Width 16 % High 10.5-15 Platelet Count 194 10^3/uL 150-450 Mean Platelet Volume 8.3 um3 7.4-10.4 Abs Neutrophils 2.5 10^3/uL 1.5-7.7 Abs Lymphocytes 1.3 10^3/uL 1.0-4.8 Abs Monocytes 0.7 10^3/uL 0-0.8 Abs Eosinophils 0 10^3/uL 0-0.6 Abs Basophils 0 10^3/uL 0-0.2 Abs Nucleated RBC 0 10^3/uL Granulocyte % 54.8 % 38-83 Lymphocyte % 29.2 % 25-47 Monocyte % 14.6 % High 0-7 Eosinophil % 0.9 % 0-6 Basophil % 0.5 % 0-2 Nucleated Red Blood Cells % 0.2 Basic Metabolic Panel 08/04/2018 Sodium 140 mmol/L 135-145 Potassium 4.3 mmol/L 3.5-5.0 Chloride 105 mmol/L 101-111 Co2 Carbon Dioxide 27 mmol/L 22-32 Anion Gap 8 mmol/L 2-11 Glucose 96 mg/dL 70-100 Blood Urea Nitrogen 25 mg/dL High 6-24 Creatinine 0.97 mg/dL 0.67-1.17 BUN/Creatinine Ratio 25.8 High 8-20 Calcium 9.6 mg/dL 8.6-10.3 Egfr Non- 79.2 >60 Egfr 95.9 >60 1 Laboratory test finding 08/04/2018 Magnesium 2.3 mg/dL 1.9-2.7 Inr/Protime 07/25/2018 Inr 2.58 High 0.77-1.02 Inr/Protime 06/30/2018 Inr 2.21 High 0.77-1.02 Ua Routine 06/28/2018 Ua Specific [place] 1.020 Ua PH 5 Ua Color dark yellow Ua Appera clear Ua WBC - Ua Protein trace Ua Glucose 50 Ua Ketones neg Ua Bilirubin neg Ua Urobilinogen neg Ua Nitrite neg Ua Occult Blood 250 Urinalysis Profile 06/28/2018 Urine Color Yellow 2 Urine Appearance Cloudy 2 Urine Specific [place] 1.023 1.010-1.030 2 Urine pH 5.0 5-9 2 Urine Urobilinogen Negative Negative 2 Urine Ketones Negative Negative 2 Urine Protein Negative Negative 2 Urine Leukocytes Negative Negative 2 Urine Blood 3+ Negative 2 * * Negative 2, 3 Urine Nitrite Negative Negative 2 Urine Bilirubin Negative Negative 2 Urine Glucose 1+(50 mg/dL) Negative 2 Urine White Blood Cell 2+(11-20/hpf) Absent 2 Urine Red Blood Cell 3+(>10/hpf) Absent 2 Urine Bacteria Absent Absent 2 Urine Uric Acid Crystals Present Absent 2 Urine Culture And 06/28/2018 Urine Culture SEE RESULT BELOW 2, 4 Sensitivities CBC Auto Diff 06/02/2018 White Blood Count 7.0 10^3/uL 3.5-10.8 Red Blood Count 4.19 10^6/uL 4.00-5.40 Hemoglobin 14.0 g/dL 14.0-18.0 Hematocrit 41 % Low 42-52 Mean Corpuscular Volume 99 fL High 80-94 Mean Corpuscular Hemoglobin 33 pg High 27-31 Mean Corpuscular HGB Conc 34 g/dL 31-36 Red Cell Distribution Width 15 % 10.5-15 Platelet Count 183 10^3/uL 150-450 Mean Platelet Volume 8.2 um3 7.4-10.4 Abs Neutrophils 5.4 10^3/uL 1.5-7.7 Abs Lymphocytes 1.0 10^3/uL 1.0-4.8 Abs Monocytes 0.5 10^3/uL 0-0.8 Abs Eosinophils 0 10^3/uL 0-0.6 Abs Basophils 0 10^3/uL 0-0.2 Abs Nucleated RBC 0 10^3/uL Granulocyte % 77.4 % 38-83 Lymphocyte % 14.7 % Low 25-47 Monocyte % 6.8 % 0-7 Eosinophil % 0.6 % 0-6 Basophil % 0.5 % 0-2 Nucleated Red Blood Cells % 0 Comp Metabolic Panel 06/02/2018 Sodium 143 mmol/L 135-145 Potassium 3.7 mmol/L 3.5-5.0 Chloride 104 mmol/L 101-111 Co2 Carbon Dioxide 30 mmol/L 22-32 Anion Gap 9 mmol/L 2-11 Glucose 154 mg/dL High 70-100 Blood Urea Nitrogen 24 mg/dL 6-24 Creatinine 1.13 mg/dL 0.67-1.17 One Over Creatinine 0.88 mg/dL 0.67-1.17 BUN/Creatinine Ratio 21.2 High 8-20 Calcium 9.4 mg/dL 8.6-10.3 Total Protein 6.4 g/dL 6.4-8.9 Albumin 4.4 g/dL 3.2-5.2 Globulin 2.0 g/dL 2-4 Albumin/Globulin Ratio 2.2 1-3 Total Bilirubin 0.40 mg/dL 0.2-1.0 Alkaline Phosphatase 52 U/L 34-104 Alt 25 U/L 7-52 Ast 23 U/L 13-39 Egfr Non- 66.7 >60 Egfr 80.6 >60 5 Laboratory test finding 06/02/2018 Uric Acid 4.9 mg/dL 4.4-7.6 Phosphorus 3.4 mg/dL 2.5-5.0 Magnesium 2.1 mg/dL 1.9-2.7 Pthi 06/02/2018 Calcium (PTH Intact) 9.5 mg/dL 8.6-10.3 PTH Intact 4.4 pmol/L 1.3-9.3 Creatinine Clearance 06/02/2018 Creatinine 1.12 mg/dL High 0.51-0.95 Urine Collection Time 24 hr Urine Total Volume 2350 mL Urine Random Creatinine 105.26 mg/dL Creatinine Clearance 153 mL/min High 97-137 Sodium 24HR Urine 06/02/2018 Urine Collection Time 24 hr Urine Total Volume 2350 mL Urine Random Sodium 108 mmol/L Urine Sodium/24HR 253 mmol/24 High 40-220 Total Protein 24HR Urine 06/02/2018 Urine Random Total Protein 5 mg/dL Urine Total Protein/24HR (SEE NOTE) mg/24Hr 0-165 6 Laboratory test finding 06/02/2018 Renin <0.6 ng/mL/h 7 Aldosterone <4.0 ng/dL <=21 8 Uric Acid 24HR Urine 06/02/2018 Uric Acid, U 964 mg/24h High 9 Collection Duration 24 h Urine Volume 2350 mL 10 Uric Acid Concentration 41 mg/dL 11 Inr/Protime 06/02/2018 Inr 2.33 High 0.77-1.02 Inr/Protime 05/12/2018 Inr 2.90 High 0.77-1.02 Basic Metabolic Panel 05/12/2018 Sodium 140 mmol/L 135-145 Potassium 3.8 mmol/L 3.5-5.0 Chloride 104 mmol/L 101-111 Co2 Carbon Dioxide 28 mmol/L 22-32 Anion Gap 8 mmol/L 2-11 Glucose 101 mg/dL High 70-100 Blood Urea Nitrogen 28 mg/dL High 6-24 Creatinine 0.99 mg/dL 0.67-1.17 BUN/Creatinine Ratio 28.3 High 8-20 Calcium 9.6 mg/dL 8.6-10.3 Egfr Non- 77.6 >60 Egfr 93.9 >60 12 Laboratory test finding 05/12/2018 Magnesium 2.2 mg/dL 1.9-2.7 Inr/Protime 03/28/2018 Inr 2.83 High 0.77-1.02 Comp Metabolic Panel 03/18/2018 Sodium 139 mmol/L 139-145 Potassium 4.3 mmol/L 3.5-5.0 Chloride 103 mmol/L 101-111 Co2 Carbon Dioxide 28 mmol/L 22-32 Anion Gap 8 mmol/L 2-11 Glucose 100 mg/dL 70-100 Blood Urea Nitrogen 29 mg/dL High 6-24 Creatinine 1.15 mg/dL 0.67-1.17 BUN/Creatinine Ratio 25.2 High 8-20 Calcium 9.2 mg/dL 8.6-10.3 Total Protein 6.5 g/dL 6.4-8.9 Albumin 4.2 g/dL 3.2-5.2 Globulin 2.3 g/dL 2-4 Albumin/Globulin Ratio 1.8 1-3 Total Bilirubin 0.40 mg/dL 0.2-1.0 Alkaline Phosphatase 66 U/L 34-104 Alt 30 U/L 7-52 Ast 20 U/L 13-39 Egfr Non- 65.3 >60 Egfr 84.0 >60 13 Laboratory test finding 03/18/2018 Erythrocyte Sed Rate 47 mm/Hr High 0- 20 C Reactive Protein 8.51 mg/L High < 5.00 14 CBC Auto Diff 03/18/2018 White Blood Count 6.2 10^3/uL 3.5-10.8 Red Blood Count 3.70 10^6/uL Low 4.0-5.4 Hemoglobin 12.5 g/dL Low 14.0-18.0 Hematocrit 36 % Low 42-52 Mean Corpuscular Volume 98 fL High 80-94 Mean Corpuscular Hemoglobin 34 pg High 27-31 Mean Corpuscular HGB Conc 34 g/dL 31-36 Red Cell Distribution Width 15 % 10.5-15 Platelet Count 314 10^3/uL 150-450 Mean Platelet Volume 7.9 um3 7.4-10.4 Abs Neutrophils 4.2 10^3/uL 1.5-7.7 Abs Lymphocytes 1.3 10^3/uL 1.0-4.8 Abs Monocytes 0.6 10^3/uL 0-0.8 Abs Eosinophils 0.1 10^3/uL 0-0.6 Abs Basophils 0.1 10^3/uL 0-0.2 Abs Nucleated RBC 0 10^3/uL Granulocyte % 67.0 % 38-83 Lymphocyte % 20.3 % Low 25-47 Monocyte % 9.6 % High 0-7 Eosinophil % 2.1 % 0-6 Basophil % 1.0 % 0-2 Nucleated Red Blood Cells % 0 Thyroid Panel 03/18/2018 Free T4 (Free Thyroxine) 0.98 ng/dL 0.61-1.12 Thyroxine 8.80 g/mL 6.09-12.23 TSH (Thyroid Stim Horm) 3.45 mcIU/mL 0.34-5.60 Laboratory test finding 01/24/2018 Creatine Kinase(CK) 199 U/L 10-223 LDL Cholesterol Direct 141 mg/dL 15 Inr/Protime 01/24/2018 Inr 3.03 High 0.77-1.02 Laboratory test finding 12/07/2017 B-Type Natriuretic 124 pg/mL High 16 Peptide BNP Troponin-I (TnI) 0.00 ng/mL <0.04 Laboratory test finding 12/01/2017 Creatine Kinase(CK) 159 U/L 10-223 LDL Cholesterol Direct 97 mg/dL 17 Comp Metabolic Panel 06/10/2017 Sodium 140 mmol/L 133-145 Potassium 4.2 mmol/L 3.5-5.0 Chloride 104 mmol/L 101-111 Co2 Carbon Dioxide 31 mmol/L 22-32 Anion Gap 5 mmol/L 2-11 Glucose 77 mg/dL 70-100 Blood Urea Nitrogen 22 mg/dL 6-24 Creatinine 1.09 mg/dL 0.67-1.17 BUN/Creatinine Ratio 20.2 High 8-20 Albumin 4.5 g/dL 3.2-5.2 Total Bilirubin 0.50 mg/dL 0.2-1.0 Alkaline Phosphatase 50 U/L 34-104 Alt 26 U/L 7-52 Ast 22 U/L 13-39 Egfr Non- 69.7 >60 Egfr 89.7 >60 18 Calcium 9.5 mg/dL 8.6-10.3 Total Protein 6.7 g/dL 6.4-8.9 Globulin 2.2 g/dL 2-4 Albumin/Globulin Ratio 2.0 1-3 Lipid Profile (Trig/Chol/HDL) 06/10/2017 Triglycerides 268 mg/dL 19 Cholesterol 207 mg/dL 20 HDL Cholesterol 44.5 mg/dL 21 LDL Cholesterol 109 mg/dL 22 Laboratory test finding 05/03/2017 Potassium Redraw 3.8 mmol/L 3.5-5.0 Ast Redraw 23 U/L 13-39 CBC Auto Diff 05/03/2017 White Blood Count 12.1 10^3/uL High 3.5-10.8 Red Blood Count 4.09 10^6/uL 4.0-5.4 Hemoglobin 13.8 g/dL Low 14.0-18.0 Hematocrit 41 % Low 42-52 Mean Corpuscular Volume 100 fL High 80-94 Mean Corpuscular Hemoglobin 34 pg High 27-31 Mean Corpuscular HGB Conc 34 g/dL 31-36 Red Cell Distribution Width 14 % 10.5-15 Platelet Count 204 10^3/uL 150-450 Mean Platelet Volume 9 um3 7.4-10.4 Abs Neutrophils 10.3 10^3/uL High 1.5-7.7 Abs Lymphocytes 0.8 10^3/uL Low 1.0-4.8 Abs Monocytes 0.9 10^3/uL High 0-0.8 Abs Eosinophils 0 10^3/uL 0-0.6 Abs Basophils 0 10^3/uL 0-0.2 Abs Nucleated RBC 0 10^3/uL Granulocyte % 85.6 % High 38-83 Lymphocyte % 6.3 % Low 25-47 Monocyte % 7.8 % 1-9 Eosinophil % 0.1 % 0-6 Basophil % 0.2 % 0-2 Nucleated Red Blood Cells % 0 Urinalysis Profile 05/03/2017 Urine Color Yellow Urine Appearance Clear Urine Specific [place] 1.017 1.010-1.030 Urine pH 6.0 5-9 Urine Urobilinogen Negative Negative Urine Ketones Trace Negative Urine Protein Negative Negative Urine Leukocytes Negative Negative Urine Blood 1+ Negative * * Negative 23 Urine Nitrite Negative Negative Urine Bilirubin Negative Negative Urine Glucose 1+(50 mg/dL) Negative Urine White Blood Cell Absent Absent Urine Red Blood Cell 1+(3-5/hpf) Absent Urine Bacteria Absent Absent Comp Metabolic Panel 05/03/2017 Sodium 136 mmol/L 133-145 Chloride 100 mmol/L Low 101-111 Co2 Carbon Dioxide 28 mmol/L 22-32 Glucose 153 mg/dL High 70-100 Blood Urea Nitrogen 31 mg/dL High 6-24 Creatinine 1.83 mg/dL High 0.67-1.17 BUN/Creatinine Ratio 16.9 8-20 Calcium 9.5 mg/dL 8.6-10.3 Total Protein 7.2 g/dL 6.4-8.9 Albumin 4.1 g/dL 3.2-5.2 Globulin 3.1 g/dL 2-4 Albumin/Globulin Ratio 1.3 1-3 Total Bilirubin 0.70 mg/dL 0.2-1.0 Alkaline Phosphatase 44 U/L 34-104 Alt 23 U/L 7-52 Egfr Non- 38.3 >60 Egfr 49.3 >60 24 Potassium TNP mmol/L 3.5-5.0 25 Anion Gap 8 mmol/L 2-11 Ast TNP U/L 13-39 26 Urinalysis Profile 05/01/2017 Urine Color Yellow Urine Appearance Cloudy Urine Specific [place] 1.017 1.010-1.030 Urine pH 5.0 5-9 Urine Urobilinogen Negative Negative Urine Ketones 1+ Negative Urine Protein Negative Negative Urine Leukocytes Negative Negative Urine Blood 3+ Negative Urine Nitrite Negative Negative Urine Bilirubin Negative Negative Urine Glucose 1+(50 mg/dL) Negative Urine White Blood Cell Absent Absent Urine Red Blood Cell 3+(>10/hpf) Absent Urine Bacteria Absent Absent CBC Auto Diff 05/01/2017 White Blood Count 9.1 10^3/uL 3.5-10.8 Red Blood Count 4.36 10^6/uL 4.0-5.4 Hemoglobin 14.6 g/dL 14.0-18.0 Hematocrit 45 % 42-52 Mean Corpuscular Volume 102 fL High 80-94 Mean Corpuscular Hemoglobin 34 pg High 27-31 Mean Corpuscular HGB Conc 33 g/dL 31-36 Red Cell Distribution Width 14 % 10.5-15 Platelet Count 189 10^3/uL 150-450 Mean Platelet Volume 8 um3 7.4-10.4 Abs Neutrophils 7.9 10^3/uL High 1.5-7.7 Abs Lymphocytes 0.8 10^3/uL Low 1.0-4.8 Abs Monocytes 0.3 10^3/uL 0-0.8 Abs Eosinophils 0 10^3/uL 0-0.6 Abs Basophils 0 10^3/uL 0-0.2 Abs Nucleated RBC 0.01 10^3/uL Granulocyte % 87.1 % High 38-83 Lymphocyte % 8.7 % Low 25-47 Monocyte % 3.7 % 1-9 Eosinophil % 0.1 % 0-6 Basophil % 0.4 % 0-2 Nucleated Red Blood Cells % 0.1 Comp Metabolic Panel 05/01/2017 Sodium 140 mmol/L 133-145 Potassium 3.9 mmol/L 3.5-5.0 Chloride 104 mmol/L 101-111 Co2 Carbon Dioxide 25 mmol/L 22-32 Anion Gap 11 mmol/L 2-11 Glucose 172 mg/dL High 70-100 Blood Urea Nitrogen 27 mg/dL High 6-24 Creatinine 1.37 mg/dL High 0.67-1.17 BUN/Creatinine Ratio 19.7 8-20 Calcium 9.5 mg/dL 8.6-10.3 Total Protein 7.1 g/dL 6.4-8.9 Albumin 4.4 g/dL 3.2-5.2 Globulin 2.7 g/dL 2-4 Albumin/Globulin Ratio 1.6 1-3 Total Bilirubin 0.70 mg/dL 0.2-1.0 Alkaline Phosphatase 41 U/L 34-104 Alt 34 U/L 7-52 Ast 32 U/L 13-39 Egfr Non- 53.6 >60 Egfr 68.9 >60 27 Laboratory test finding 05/01/2017 Lipase 24 U/L 11.0-82.0 CRP High Sensitivity 1.65 mg/L 28 Laboratory test finding 03/02/2017 Lyme Disease Serology Negative Negative 29 Rheumatoid Factor <15 IU/mL <15 30 Erythrocyte Sed Rate 13 mm/Hr 0-20 Connective Tissue Panel 03/02/2017 Anti-Nuclear Antibody 0.4 U 31 Cyclic Citrullinated Peptide <15.6 U 32 Interpretation See Comment 33 Comp Metabolic Panel 03/02/2017 Sodium 139 mmol/L 133-145 Potassium 3.8 mmol/L 3.5-5.0 Chloride 102 mmol/L 101-111 Co2 Carbon Dioxide 30 mmol/L 22-32 Anion Gap 7 mmol/L 2-11 Glucose 109 mg/dL High 70-100 Blood Urea Nitrogen 23 mg/dL 6-24 Creatinine 1.04 mg/dL 0.67-1.17 BUN/Creatinine Ratio 22.1 High 8-20 Calcium 9.6 mg/dL 8.6-10.3 Total Protein 6.7 g/dL 6.4-8.9 Albumin 4.5 g/dL 3.2-5.2 Globulin 2.2 g/dL 2-4 Albumin/Globulin Ratio 2.0 1-3 Total Bilirubin 0.50 mg/dL 0.2-1.0 Alkaline Phosphatase 43 U/L 34-104 Alt 28 U/L 7-52 Ast 22 U/L 13-39 Egfr Non- 73.6 >60 Egfr 94.7 >60 34 Laboratory test finding 03/02/2017 Uric Acid 5.8 mg/dL 4.4-7.6 Creatine Kinase(CK) 249 U/L High 10-223 Lipid Profile (Trig/Chol/HDL) 11/19/2016 Triglycerides 186 mg/dL 35 Cholesterol 152 mg/dL 36 HDL Cholesterol 43.3 mg/dL 37 LDL Cholesterol 72 mg/dL 38 Laboratory test finding 11/19/2016 Ast (Sgot) 21 U/L 13-39 Basic Metabolic Panel 11/19/2016 Sodium 140 mmol/L 133-145 Potassium 4.2 mmol/L 3.5-5.0 Chloride 102 mmol/L 101-111 Co2 Carbon Dioxide 32 mmol/L 22-32 Anion Gap 6 mmol/L 2-11 Glucose 105 mg/dL High 70-100 Blood Urea Nitrogen 26 mg/dL High 6-24 Creatinine 1.10 mg/dL 0.67-1.17 BUN/Creatinine Ratio 23.6 High 8-20 Calcium 9.6 mg/dL 8.6-10.3 Egfr Non- 69.0 >60 Egfr 88.7 >60 39 Comp Metabolic Panel 06/10/2016 Sodium 141 mmol/L 133-145 Potassium 3.8 mmol/L 3.5-5.0 Chloride 105 mmol/L 101-111 Co2 Carbon Dioxide 30 mmol/L 22-32 Anion Gap 6 mmol/L 2-11 Glucose 107 mg/dL High 70-100 Blood Urea Nitrogen 29 mg/dL High 6-24 Creatinine 1.09 mg/dL 0.67-1.17 BUN/Creatinine Ratio 26.6 High 8-20 Calcium 9.4 mg/dL 8.6-10.3 Total Protein 6.5 g/dL 6.4-8.9 Albumin 4.5 g/dL 3.2-5.2 Globulin 2.0 g/dL 2-4 Albumin/Globulin Ratio 2.3 1-3 Total Bilirubin 0.60 mg/dL 0.2-1.0 Alkaline Phosphatase 42 U/L 34-104 Alt 23 U/L 7-52 Ast 21 U/L 13-39 Egfr Non- 70.0 >60 Egfr 90.0 >60 40 Lipid Profile (Trig/Chol/HDL) 06/10/2016 Triglycerides 152 mg/dL 41 Cholesterol 131 mg/dL 42 HDL Cholesterol 40.0 mg/dL 43 LDL Cholesterol 61 mg/dL 44 Lipid Profile (Trig/Chol/HDL) 04/13/2016 Triglycerides 198 mg/dL 45 Cholesterol 198 mg/dL 46 HDL Cholesterol 38.9 mg/dL 47 LDL Cholesterol 120 mg/dL 48 Comp Metabolic Panel 04/13/2016 Sodium 139 mmol/L 133-145 Potassium 3.7 mmol/L 3.5-5.0 Chloride 103 mmol/L 101-111 Co2 Carbon Dioxide 31 mmol/L 22-32 Anion Gap 5 mmol/L 2-11 Glucose 114 mg/dL High 70-100 Blood Urea Nitrogen 25 mg/dL High 6-24 Creatinine 0.98 mg/dL 0.67-1.17 BUN/Creatinine Ratio 25.5 High 8-20 Calcium 9.1 mg/dL 8.6-10.3 Total Protein 6.5 g/dL 6.4-8.9 Albumin 4.4 g/dL 3.2-5.2 Globulin 2.1 g/dL 2-4 Albumin/Globulin Ratio 2.1 1-3 Total Bilirubin 0.70 mg/dL 0.2-1.0 Alkaline Phosphatase 41 U/L 34-104 Alt 32 U/L 7-52 Ast 26 U/L 13-39 Egfr Non- 79.1 >60 Egfr 101.8 >60 49 Laboratory test finding 01/21/2016 Creatine Kinase(CK) 190 U/L 10-223 50 Laboratory test finding 06/26/2015 Hemoglobin A1c 5.8 5-7 Laboratory test finding 06/23/2015 TSH (Thyroid Stim Horm) 1.70 ?IU/mL 0.34-5.60 Comp Metabolic Panel 06/23/2015 Sodium 141 mmol/L 133-145 Potassium 4.0 mmol/L 3.5-5.0 Chloride 105 mmol/L 101-111 Co2 Carbon Dioxide 28 mmol/L 22-32 Anion Gap 8 mmol/L 2-11 Glucose 95 mg/dL 70-100 Blood Urea Nitrogen 20 mg/dL 6-24 Creatinine 0.91 mg/dL 0.67-1.17 BUN/Creatinine Ratio 22.0 High 8-20 Calcium 9.5 mg/dL 8.6-10.3 Total Protein 6.7 g/dL 6.4-8.9 Albumin 4.6 g/dL 3.2-5.2 Globulin 2.1 g/dL 2-4 Albumin/Globulin Ratio 2.2 1-3 Total Bilirubin 0.60 mg/dL 0.2-1.0 Alkaline Phosphatase 47 U/L 34-104 Alt 28 U/L 7-52 Ast 24 U/L 13-39 Egfr Non- 86.2 >60 Egfr 110.8 >60 51 Laboratory test finding 06/23/2015 Creatine Kinase(CK) 148 U/L 10-223 Lipid Profile (Trig/Chol/HDL) 06/23/2015 Triglycerides 222 mg/dL 52 Cholesterol 157 mg/dL 53 HDL Cholesterol 37.9 mg/dL 54 LDL Cholesterol 75 mg/dL 55 Manual Differential 12/04/2014 Immature Granulocytes 4 % 0-9 Neutrophil % 49 % 38-83 Band % 4 % 0-8 Lymphocytes % 26 % 25-47 Monocytes % 14 % High 0-13 Basophil % 2 % 0-2 Reactive Lymph % 5 % 0-6 Toxic Granulation 2+ Macrocytosis 1+ Laboratory test finding 12/04/2014 Lipase 31 U/L 11.0-82.0 C Reactive Protein 138.29 mg/L High < 5.00 56 CBC Auto Diff 12/04/2014 White Blood Count 4.1 10^3/uL Low 4.8-10.8 Red Blood Count 4.60 10^6/uL 4.0-5.4 Hemoglobin 15.3 g/dL 14.0-18.0 Hematocrit 45 % 42-52 Mean Corpuscular Volume 99 fL High 80-94 Mean Corpuscular Hemoglobin 33 pg High 27-31 Mean Corpuscular HGB Conc 34 g/dL 31-36 Red Cell Distribution Width 13 % 10.5-15 Platelet Count 205 10^3/uL 150-450 Mean Platelet Volume 9 um3 7.4-10.4 Abs Neutrophils 2.4 10^3/uL 1.5-7.7 Abs Lymphocytes 0.7 10^3/uL Low 1.0-4.8 Abs Monocytes 1.0 10^3/uL High 0-0.8 Abs Eosinophils 0 10^3/uL 0-0.6 Abs Basophils 0 10^3/uL 0-0.2 Abs Nucleated RBC 0 10^3/uL Comp Metabolic Panel 12/04/2014 Sodium 138 mmol/L 133-145 Potassium 3.2 mmol/L Low 3.5-5.0 Chloride 98 mmol/L Low 101-111 Co2 Carbon Dioxide 34 mmol/L High 22-32 Anion Gap 6 mmol/L 2-11 Glucose 127 mg/dL High 70-100 Blood Urea Nitrogen 16 mg/dL 6-24 Creatinine 0.99 mg/dL 0.67-1.17 BUN/Creatinine Ratio 16.2 8-20 Calcium 9.9 mg/dL 8.6-10.3 Total Protein 7.3 g/dL 6.4-8.9 Albumin 4.5 g/dL 3.2-5.2 Globulin 2.8 g/dL 2-4 Albumin/Globulin Ratio 1.6 1-3 Total Bilirubin 0.60 mg/dL 0.2-1.0 Alkaline Phosphatase 41 U/L 34-104 Alt 23 U/L 7-52 Ast 19 U/L 13-39 Egfr Non- 78.5 >60 Egfr 100.9 >60 57 Laboratory test finding 12/04/2014 Activated Partial 32.6 seconds 24.0- 36.1 Thrombo Time Lactic Acid 1.1 mmol/L 0.5-2.2 Inr/Protime 12/04/2014 Inr 1.12 High 0.78-1.07 58 Urinalysis Profile 12/03/2014 Urine Color Yellow Urine Appearance Clear Urine Specific [place] 1.017 1.010-1.030 Urine pH 6.0 5-9 Urine Urobilinogen Negative Negative Urine Ketones 1+ Negative Urine Protein Negative Negative Urine Leukocytes Negative Negative Urine Blood Negative Negative Urine Nitrite Negative Negative Urine Bilirubin Negative Negative Urine Glucose 1+(50 mg/dL) Negative Urinalysis Profile 12/02/2014 Urine Color [place] Urine Appearance Cloudy Urine Specific [place] 1.031 High 1.010-1.030 Urine pH 5.0 5-9 Urine Urobilinogen Negative Negative Urine Ketones Negative Negative Urine Protein 1+(30 mg/dL) Negative Urine Leukocytes Negative Negative Urine Blood Negative Negative Urine Nitrite Negative Negative Urine Bilirubin Negative Negative Urine Glucose Negative Negative Urine White Blood Cell Trace(0-5/hpf) Absent Urine Red Blood Cell Trace(0-2/hpf) Absent Urine Bacteria Absent Absent Urine Hyaline Casts Present Absent CBC Auto Diff 12/02/2014 White Blood Count 6.9 10^3/uL 4.8-10.8 Red Blood Count 4.62 10^6/uL 4.0-5.4 Hemoglobin 15.6 g/dL 14.0-18.0 Hematocrit 46 % 42-52 Mean Corpuscular Volume 99 fL High 80-94 Mean Corpuscular Hemoglobin 34 pg High 27-31 Mean Corpuscular HGB Conc 34 g/dL 31-36 Red Cell Distribution Width 14 % 10.5-15 Platelet Count 200 10^3/uL 150-450 Mean Platelet Volume 8 um3 7.4-10.4 Abs Neutrophils 5.4 10^3/uL 1.5-7.7 Abs Lymphocytes 0.7 10^3/uL Low 1.0-4.8 Abs Monocytes 0.6 10^3/uL 0-0.8 Abs Eosinophils 0 10^3/uL 0-0.6 Abs Basophils 0 10^3/uL 0-0.2 Abs Nucleated RBC 0.01 10^3/uL Granulocyte % 79.4 % 38-83 Lymphocyte % 10.7 % Low 25-47 Monocyte % 9.2 % High 1-9 Eosinophil % 0.3 % 0-6 Basophil % 0.4 % 0-2 Nucleated Red Blood Cells % 0.2 Laboratory test finding 12/02/2014 Lactic Acid 1.4 mmol/L 0.5-2.2 Comp Metabolic Panel 12/02/2014 Sodium 138 mmol/L 133-145 Potassium 3.8 mmol/L 3.5-5.0 Chloride 103 mmol/L 101-111 Co2 Carbon Dioxide 27 mmol/L 22-32 Anion Gap 8 mmol/L 2-11 Glucose 151 mg/dL High 70-100 Blood Urea Nitrogen 41 mg/dL High 6-24 Creatinine 1.48 mg/dL High 0.67-1.17 BUN/Creatinine Ratio 27.7 High 8-20 Calcium 9.0 mg/dL 8.6-10.3 Total Protein 7.1 g/dL 6.4-8.9 Albumin 4.6 g/dL 3.2-5.2 Globulin 2.5 g/dL 2-4 Albumin/Globulin Ratio 1.8 1-3 Total Bilirubin 0.50 mg/dL 0.2-1.0 Alkaline Phosphatase 44 U/L 34-104 Alt 29 U/L 7-52 Ast 25 U/L 13-39 Egfr Non- 49.3 >60 Egfr 63.5 >60 59 Laboratory test finding 12/02/2014 Magnesium 2.3 mg/dL 1.9-2.7 Lipase 16 U/L 11.0-82.0 Troponin I 0.01 ng/mL <0.03 60 TSH (Thyroid Stimulating Horm) 2.22 IU/mL 0.34-5.60 C Reactive Protein 96.82 mg/L High < 5.00 61 Laboratory test finding 06/11/2014 Creatine Kinase 194 U/L 10-223 LDL Cholesterol Direct 114 mg/dL 62 Lipid Profile (Trig/Chol/HDL) 05/09/2014 Triglycerides 143 mg/dL 63 Cholesterol 136 mg/dL 64 HDL Cholesterol 42.2 mg/dL 65 LDL Cholesterol 65 mg/dL 66 Laboratory test finding 05/09/2014 Creatine Kinase 308 U/L High 10-223 Ast 22 U/L 13-39 CBC Auto Diff 11/03/2013 White Blood Count 9.3 10^3/uL 4.8-10.8 Red Blood Count 4.43 10^6/uL 4.0-5.4 Hemoglobin 14.3 g/dL 14.0-18.0 Hematocrit 43 % 42-52 Mean Corpuscular Volume 98 fL High 80-94 Mean Corpuscular Hemoglobin 32 pg High 27-31 Mean Corpuscular HGB Conc 33 g/dL 31-36 Red Cell Distribution Width 13 % 10.5-15 Platelet Count 220 10^3/uL 150-450 Mean Platelet Volume 8 um3 7.4-10.4 Abs Neutrophils 7.8 10^3/uL High 1.5-7.7 Abs Lymphocytes 1.1 10^3/uL 1.0-4.8 Abs Monocytes 0.3 10^3/uL 0-0.8 Abs Eosinophils 0 10^3/uL 0-0.6 Abs Basophils 0 10^3/uL 0-0.2 Abs Nucleated RBC 0 10^3/uL Granulocyte % 84.7 % High 38-83 Lymphocyte % 11.7 % Low 25-47 Monocyte % 3.3 % 1-9 Eosinophil % 0.1 % 0-6 Basophil % 0.2 % 0-2 Nucleated Red Blood Cells % 0 Inr/Protime 11/03/2013 Inr 0.94 0.85-1.06 Laboratory test 11/03/2013 D Dimer Quantitative < 200 ng/mL Less Than 230 67 finding Comp Metabolic Panel 11/03/2013 Sodium 137 mmol/L 133-145 Potassium 4.0 mmol/L 3.5-5.0 Chloride 97 mmol/L Low 101-111 Co2 Carbon Dioxide 34.0 mmol/L High 22-32 Anion Gap 6.0 mmol/L 2-11 Glucose 128 mg/dL High 70-100 Blood Urea Nitrogen 24 mg/dL 6-24 Creatinine 1.00 mg/dL 0.50-1.40 BUN/Creatinine Ratio 24.0 High 8-20 Calcium 10.2 mg/dL High 8.1-9.9 Total Protein 7.5 g/dL 6.2-8.1 Albumin 4.5 g/dL 3.6-5.4 Globulin 3.0 g/dL 2-4 Albumin/Globulin Ratio 1.5 1-3 Total Bilirubin 0.6 mg/dL 0.4-1.5 Alkaline Phosphatase 43 U/L 30-110 Alt 40 U/L 14-54 Ast 43 U/L High 12-42 Egfr Non- 77.9 >60 Egfr 100.1 >60 68 Laboratory test finding 11/03/2013 Magnesium 2.2 mg/dL 1.7-2.6 Creatine Kinase 542 U/L High 0-200 CKMB 11/03/2013 CKMB ng/mL 33.9 ng/mL High 0.3-4.0 69 Laboratory test finding 11/03/2013 Troponin I 0.56 ng/mL High 0-0.06 70 Activated Partial Thrombo Time 33.8 seconds 24.0-36.1 Lipid Profile (Trig/Chol/HDL) 06/06/2013 Triglycerides 141 mg/dL 40-200 Cholesterol 211 mg/dL High Less than 200 HDL Cholesterol 45 mg/dL 40-60 71 Cholesterol/HDL Ratio 4.7 Average High 1-4.44 LDL Cholesterol 137.8 High Less Than 100 72 Lipid Profile (Trig/Chol/HDL) 10/16/2012 Triglycerides 185 mg/dL 40-200 Cholesterol 237 mg/dL High Less than 200 HDL Cholesterol 44 mg/dL 40-60 73 Cholesterol/HDL Ratio 5.4 Average High 1-4.44 LDL Cholesterol 156.0 mg/dL High Less Than 100 74 Comp Metabolic Panel 10/16/2012 Sodium 141 mmol/L 133-145 Potassium 4.0 mmol/L 3.5-5.0 Chloride 106 mmol/L 101-111 Co2 Carbon Dioxide 31.0 mmol/L 22-32 Anion Gap 4.0 mmol/L 2-11 Glucose 110 mg/dL High 70-100 Blood Urea Nitrogen 18 mg/dL 6-24 Creatinine 1.10 mg/dL 0.50-1.40 BUN/Creatinine Ratio 16.4 8-20 Calcium 9.4 mg/dL 8.1-9.9 Total Protein 6.7 g/dL 6.2-8.1 Albumin 4.4 g/dL 3.6-5.4 Globulin 2.3 g/dL 2-4 Albumin/Globulin Ratio 1.9 1-3 Total Bilirubin 1.1 mg/dL 0.4-1.5 Alkaline Phosphatase 45 U/L 30-110 Alt 29 U/L 14-54 Ast 25 U/L 12-42 Egfr Non- 70.0 >60 Egfr 90.1 >60 75 Laboratory test finding 10/16/2012 Halina (Anti-Nuclear AB) Negative Negative Screen Erythrocyte Sed Rate 12 mm/Hr 0-20 Rheumatoid Factor <15 IU/mL <15 76 Uric Acid 6.6 mg/dL 2.6-7.2 Lyme Disease Serology Negative Negative 77 CBC Auto Diff 10/06/2011 White Blood Count 4.5 CUMM Low 4.8-10.8 Red Cell Count 4.40 CUMM Low 4.6-6.2 Hemoglobin 14.7 g/dL 14.0-18.0 Hematocrit 43 % 42-52 Mean Corpuscular Volume 97 um3 High 80-94 Mean Corpuscular Hemoglob 33 pg High 27-31 Mean Corpuscular HGB Cone 34 g/dL 32-36 Redcell Distribution WDTH 13 % 10.5-15 Platelet Count 185 CUMM 150-450 Mean Platelet Volume 8.8 um3 7.4-10.4 Gran % 69.3 % 38-83 Lymph % 19.2 % Low 25-47 Mononuclear % 10.0 % High 1-9 Eosinophil % 1.3 % 0-6 Basophil % 0.2 % 0-2 Abs Lymphs 0.9 Low 1.0-4.8 Abs Mononuclear 0.5 0-0.8 Absolute Neutrophil Count 3.1 1.5-7.7 Abs Eosinophils 0.1 0-0.6 Abs Basophils 0 0-0.2 78 Comp Metabolic Panel 10/06/2011 Sodium 140 mmol/L 135-145 Potassium 3.8 mmol/L 3.5-5.0 Chloride 104 mmol/L 101-111 Co2 (Carbon Dioxide) 27.0 mmol/L 22-32 Anion Gap 9.0 mmol/L 2-11 79 Glucose 106 mg/dL High 70-100 BUN 21 mg/dL 6-24 Creatinine 1.0 mg/dL 0.50-1.40 One Over Creatinine 1.00 BUN/Creatinine Ratio 21.0 High 8-20 Calcium 8.8 mg/dL 8.1-9.9 Total Protein 6.6 GM/DL 6.2-8.1 Albumin 4.2 GM/DL 3.6-5.4 Globulin 2.4 GM/DL 2-4 Albumin/Globulin Ratio 1.8 1-3 Bilirubin Total 0.7 mg/dL 0.4-1.5 80 Alkaline Phosphatase 54 U/L 39-117 Alt (SGPT) 33 U/L 17-63 Ast (Sgot) 26 U/L 12-42 eGFR Non- 78.5 > 60 eGFR 100.9 > 60 81 Laboratory test finding 10/06/2011 TSH 1.60 MIU/ML 0.34-5.60 Lipid Profile (Trig/Chol/HDL) 10/06/2011 Triglyceride 149 mg/dL 40-200 Cholesterol 194 mg/dL Less Than 200 82 High Density Lipoprotein 40 mg/dL 40-60 83 Cholesterol/HDL Ratio 4.85 AVERAGE 1-4.97 Low Density Lipoprotein 124 mg/dL High Less Than 100 84 1 Because ethnic data is not always readily available, this report includes an eGFR for both -Americans and non- Americans. The National Kidney Disease Education Program (NKDEP) does not endorse the use of the MDRD equation for patients that are not between the ages of 18 and 70, are , have extremes of body size, muscle mass, or nutritional status, or are non- or non-. According to the National Kid[employer] Foundation, irrespective of diagnosis, the stage of the disease is based on the level of kidney function: Stage Description GFR(mL/min/1.73 m(2)) 1 Kidney damage with normal or decreased GFR 90 2 Kidney damage with mild decrease in GFR 60-89 3 Moderate decrease in GFR 30-59 4 Severe decrease in GFR 15-29 5 Kidney failure <15 (or dialysis) 2 [id number] 3 *Ascorbic acid is present which may interfere with detection of blood. 4 SEE RESULT BELOW Name: SEFERINO DANIELSON : [address]: Michael Velasquez MD Acct: [id number] Unit: [id number] AGE: 58 Location: [facility] Re06/28/18 SEX: M Status: REG REF SPEC: [id number] RICARDO: 06/28/18-[address]: Michael Velasquez MD REQ: [id number] RECD: 06/28/18 STATUS: COMP _ SOURCE: URINE SPDESC: ORDERED: Urine Culture Procedure Result Reported Site Urine Culture Final 06/29/18- 1609 ML No Growth (<1,000 CFU/mL) * ML - Main Lab . END OF REPORT DEPARTMENT OF PATHOLOGY, [address] [place] [address] Nawaf Sosa M.D. Director [facility] # [id number] 5 Because ethnic data is not always readily available, this report includes an eGFR for both -Americans and non- Americans. The National Kidney Disease Education Program (NKDEP) does not endorse the use of the MDRD equation for patients that are not between the ages of 18 and 70, are , have extremes of body size, muscle mass, or nutritional status, or are non- or non-. According to the National Kidney Foundation, irrespective of diagnosis, the stage of the disease is based on the level of kidney function: Stage Description GFR(mL/min/1.73 m(2)) 1 Kidney damage with normal or decreased GFR 90 2 Kidney damage with mild decrease in GFR 60-89 3 Moderate decrease in GFR 30-59 4 Severe decrease in GFR 15-29 5 Kidney failure <15 (or dialysis) 6 Unable to calculate due to insufficient protein 7 REFERENCE VALUE (Peripheral vein specimen) Na-deplete, upright: Mean: 5.9 Range: 2.9-10.8 Na-replete, upright: Mean: 1.0 Range: < or=0.6-3.0 ADDITIONAL INFORMATION Testing performed by Liquid Chromatography-Tandem Mass Spectrometry (LC-MS/MS). This test was developed and its performance characteristics determined by [facility] in a manner consistent with CLIA requirements. This test has not been cleared or approved by the U.S. Food and Drug Administration. Test Performed by: [facility] - [facility] [address] [place] [address] 8 ADDITIONAL INFORMATION Reference range for patients 11 years and older is based on upright A.M. collection from subjects without sodium restrictions. This test was developed and its performance characteristics determined by [facility] in a manner consistent with CLIA requirements. This test has not been cleared or approved by the U.S. Food and Drug Administration. Test Performed by: [facility] [address] [place] [address] 9 REFERENCE VALUE <750 (Diet-Dependent) ADDITIONAL INFORMATION This test has been modified from the radiation control specialist's instructions. Its performance characteristics were determined by [facility] in a manner consistent with CLIA requirements. This test has not been cleared or approved by the U.S. Food and Drug Administration. The reference value is for a 24-hour collection. Specimens collected for other than a 24-hour time period are reported in unit of mg/dL for which reference values are not established. 10 REVISED RESULTS PREVIOUSLY REPORTED 18 (Reported 06/05/2018 12:25) 11 Test Performed by: [facility] - [address] [address] 12 Because ethnic data is not always readily available, this report includes an eGFR for both -Americans and non- Americans. The National Kidney Disease Education Program (NKDEP) does not endorse the use of the MDRD equation for patients that are not between the ages of 18 and 70, are , have extremes of body size, muscle mass, or nutritional status, or are non- or non-. According to the National Kidney Foundation, irrespective of diagnosis, the stage of the disease is based on the level of kidney function: Stage Description GFR(mL/min/1.73 m(2)) 1 Kidney damage with normal or decreased GFR 90 2 Kidney damage with mild decrease in GFR 60-89 3 Moderate decrease in GFR 30-59 4 Severe decrease in GFR 15-29 5 Kidney failure <15 (or dialysis) 13 Because ethnic data is not always readily available, this report includes an eGFR for both -Americans and non- Americans. The National Kidney Disease Education Program (NKDEP) does not endorse the use of the MDRD equation for patients that are not between the ages of 18 and 70, are , have extremes of body size, muscle mass, or nutritional status, or are non- or non-. According to the National Kidney Foundation, irrespective of diagnosis, the stage of the disease is based on the level of kidney function: Stage Description GFR(mL/min/1.73 m(2)) 1 Kidney damage with normal or decreased GFR 90 2 Kidney damage with mild decrease in GFR 60-89 3 Moderate decrease in GFR 30-59 4 Severe decrease in GFR 15-29 5 Kidney failure <15 (or dialysis) 14 Acute inflammation: >10.00 15 Desirable: <100 Near Optimal: 100-129 Borderline High: 130-159 High: 160-189 Very High: >189 16 >100 to <200 pg/mL: likely compensated congestive heart failure (CHF) 200 to 400 pg/mL: likely moderate CHF >400 pg/mL: likely moderate to severe CHF 17 Desirable: <100 Near Optimal: 100-129 Borderline High: 130-159 High: 160-189 Very High: >189 18 Because ethnic data is not always readily available, this report includes an eGFR for both -Americans and non- Americans. The National Kidney Disease Education Program (NKDEP) does not endorse the use of the MDRD equation for patients that are not between the ages of 18 and 70, are , have extremes of body size, muscle mass, or nutritional status, or are non- or non-. According to the National Kidney Foundation, irrespective of diagnosis, the stage of the disease is based on the level of kidney function: Stage Description GFR(mL/min/1.73 m(2)) 1 Kidney damage with normal or decreased GFR 90 2 Kidney damage with mild decrease in GFR 60-89 3 Moderate decrease in GFR 30-59 4 Severe decrease in GFR 15-29 5 Kidney failure <15 (or dialysis) 19 Desirable <150 Borderline high 150-199 High 200-499 Very High >500 20 Desirable <200 Borderline high 200-239 High >239 21 Low <40 Desirable: 40-60 High: >60 22 Desirable: <100 mg/dL Near Optimal: 100-129 mg/dL Borderline High: 130-159 mg/dL High: 160-189 mg/dL Very High: >189 mg/dL 23 *Ascorbic acid is present which may interfere with detection of blood. 24 Because ethnic data is not always readily available, this report includes an eGFR for both -Americans and non- Americans. The National Kidney Disease Education Program (NKDEP) does not endorse the use of the MDRD equation for patients that are not between the ages of 18 and 70, are , have extremes of body size, muscle mass, or nutritional status, or are non- or non-. According to the National Kidney Foundation, irrespective of diagnosis, the stage of the disease is based on the level of kidney function: Stage Description GFR(mL/min/1.73 m(2)) 1 Kidney damage with normal or decreased GFR 90 2 Kidney damage with mild decrease in GFR 60-89 3 Moderate decrease in GFR 30-59 4 Severe decrease in GFR 15-29 5 Kidney failure <15 (or dialysis) 25 Hemolyzed, spoke to Mery for recollect. 26 Hemolyzed, spoke to Mery for recollect. 27 Because ethnic data is not always readily available, this report includes an eGFR for both -Americans and non- Americans. The National Kidney Disease Education Program (NKDEP) does not endorse the use of the MDRD equation for patients that are not between the ages of 18 and 70, are , have extremes of body size, muscle mass, or nutritional status, or are non- or non-. According to the National Kidney Foundation, irrespective of diagnosis, the stage of the disease is based on the level of kidney function: Stage Description GFR(mL/min/1.73 m(2)) 1 Kidney damage with normal or decreased GFR 90 2 Kidney damage with mild decrease in GFR 60-89 3 Moderate decrease in GFR 30-59 4 Severe decrease in GFR 15-29 5 Kidney failure <15 (or dialysis) 28 Low risk: <1.00 Average risk: 1.00-3.00 High risk: >3.00 29 Serologic response to B. burgdorferi infection is not detected, but cannot rule out early infection during which low or undetectable antibody levels to B. burgdorferi may be present. If clinically indicated, a new serum specimen should be submitted in 7-14 days. Test Performed by: [facility] [address] [place] [address] 30 Test Performed by: [facility] - [address] [address] 31 REFERENCE VALUE <=1.0 (Negative) 32 REFERENCE VALUE <20.0 (Negative) 33 Tests for antibodies to dsDNA and ROSANNA antigens are not performed automatically unless the HALINA result is > or= 3.0 U. Studies performed at [facility] indicate that positive HALINA results <3.0 U are rarely accompanied by positive second order tests. Test Performed by: [facility] - [address] [address] 34 Because ethnic data is not always readily available, this report includes an eGFR for both -Americans and non- Americans. The National Kidney Disease Education Program (NKDEP) does not endorse the use of the MDRD equation for patients that are not between the ages of 18 and 70, are , have extremes of body size, muscle mass, or nutritional status, or are non- or non-. According to the National Kidney Foundation, irrespective of diagnosis, the stage of the disease is based on the level of kidney function: Stage Description GFR(mL/min/1.73 m(2)) 1 Kidney damage with normal or decreased GFR 90 2 Kidney damage with mild decrease in GFR 60-89 3 Moderate decrease in GFR 30-59 4 Severe decrease in GFR 15-29 5 Kidney failure <15 (or dialysis) 35 Desirable <150 Borderline high 150-199 High 200-499 Very High >500 36 Desirable <200 Borderline high 200-239 High >239 37 Low <40 Desirable: 40-60 High: >60 38 Desirable: <100 mg/dL Near Optimal: 100-129 mg/dL Borderline High: 130-159 mg/dL High: 160-189 mg/dL Very High: >189 mg/dL 39 Because ethnic data is not always readily available, this report includes an eGFR for both -Americans and non- Americans. The National Kidney Disease Education Program (NKDEP) does not endorse the use of the MDRD equation for patients that are not between the ages of 18 and 70, are , have extremes of body size, muscle mass, or nutritional status, or are non- or non-. According to the National Kidney Foundation, irrespective of diagnosis, the stage of the disease is based on the level of kidney function: Stage Description GFR(mL/min/1.73 m(2)) 1 Kidney damage with normal or decreased GFR 90 2 Kidney damage with mild decrease in GFR 60-89 3 Moderate decrease in GFR 30-59 4 Severe decrease in GFR 15-29 5 Kidney failure <15 (or dialysis) 40 Because ethnic data is not always readily available, this report includes an eGFR for both -Americans and non- Americans. The National Kidney Disease Education Program (NKDEP) does not endorse the use of the MDRD equation for patients that are not between the ages of 18 and 70, are , have extremes of body size, muscle mass, or nutritional status, or are non- or non-. According to the National Kidney Foundation, irrespective of diagnosis, the stage of the disease is based on the level of kidney function: Stage Description GFR(mL/min/1.73 m(2)) 1 Kidney damage with normal or decreased GFR 90 2 Kidney damage with mild decrease in GFR 60-89 3 Moderate decrease in GFR 30-59 4 Severe decrease in GFR 15-29 5 Kidney failure <15 (or dialysis) 41 Desirable <150 Borderline high 150-199 High 200-499 Very High >500 42 Desirable <200 Borderline high 200-239 High >239 43 Low <40 Desirable: 40-60 High: >60 44 Desirable: <100 mg/dL Near Optimal: 100-129 mg/dL Borderline High: 130-159 mg/dL High: 160-189 mg/dL Very High: >189 mg/dL 45 Desirable <150 Borderline high 150-199 High 200-499 Very High >500 46 Desirable <200 Borderline high 200-239 High >239 47 Low <40 Desirable: 40-60 High: >60 48 Desirable: <100 mg/dL Near Optimal: 100-129 mg/dL Borderline High: 130-159 mg/dL High: 160-189 mg/dL Very High: >189 mg/dL 49 Because ethnic data is not always readily available, this report includes an eGFR for both -Americans and non- Americans. The National Kidney Disease Education Program (NKDEP) does not endorse the use of the MDRD equation for patients that are not between the ages of 18 and 70, are , have extremes of body size, muscle mass, or nutritional status, or are non- or non-. According to the National Kidney Foundation, irrespective of diagnosis, the stage of the disease is based on the level of kidney function: Stage Description GFR(mL/min/1.73 m(2)) 1 Kidney damage with normal or decreased GFR 90 2 Kidney damage with mild decrease in GFR 60-89 3 Moderate decrease in GFR 30-59 4 Severe decrease in GFR 15-29 5 Kidney failure <15 (or dialysis) 50 Copy Result to: MICHAEL VELASQUEZ ([id number]) 51 Because ethnic data is not always readily available, this report includes an eGFR for both -Americans and non- Americans. The National Kidney Disease Education Program (NKDEP) does not endorse the use of the MDRD equation for patients that are not between the ages of 18 and 70, are , have extremes of body size, muscle mass, or nutritional status, or are non- or non-. According to the National Kidney Foundation, irrespective of diagnosis, the stage of the disease is based on the level of kidney function: Stage Description GFR(mL/min/1.73 m(2)) 1 Kidney damage with normal or decreased GFR 90 2 Kidney damage with mild decrease in GFR 60-89 3 Moderate decrease in GFR 30-59 4 Severe decrease in GFR 15-29 5 Kidney failure <15 (or dialysis) 52 Desirable <150 Borderline high 150-199 High 200-499 Very High >500 53 Desirable <200 Borderline high 200-239 High >239 54 Low <40 Desirable: 40-60 High: >60 55 Desirable: <100 mg/dL Near Optimal: 100-129 mg/dL Borderline High: 130-159 mg/dL High: 160-189 mg/dL Very High: >189 mg/dL 56 Acute inflammation: >10.00 57 Because ethnic data is not always readily available, this report includes an eGFR for both -Americans and non- Americans. The National Kidney Disease Education Program (NKDEP) does not endorse the use of the MDRD equation for patients that are not between the ages of 18 and 70, are , have extremes of body size, muscle mass, or nutritional status, or are non- or non-. According to the National Kidney Foundation, irrespective of diagnosis, the stage of the disease is based on the level of kidney function: Stage Description GFR(mL/min/1.73 m(2)) 1 Kidney damage with normal or decreased GFR 90 2 Kidney damage with mild decrease in GFR 60-89 3 Moderate decrease in GFR 30-59 4 Severe decrease in GFR 15-29 5 Kidney failure <15 (or dialysis) 58 Please note: Effective November 27, 2014, the reference value for this test has changed due to the validation and activation of a new reagent lot number. 59 Because ethnic data is not always readily available, this report includes an eGFR for both -Americans and non- Americans. The National Kidney Disease Education Program (NKDEP) does not endorse the use of the MDRD equation for patients that are not between the ages of 18 and 70, are , have extremes of body size, muscle mass, or nutritional status, or are non- or non-. According to the National Kidney Foundation, irrespective of diagnosis, the stage of the disease is based on the level of kidney function: Stage Description GFR(mL/min/1.73 m(2)) 1 Kidney damage with normal or decreased GFR 90 2 Kidney damage with mild decrease in GFR 60-89 3 Moderate decrease in GFR 30-59 4 Severe decrease in GFR 15-29 5 Kidney failure <15 (or dialysis) 60 Reference Range and Interpretation: TnI (ng/mL) Interpretation Less Than 0.03 ng/mL Not supportive of diagnosis of CO 0.03 - 0.50 ng/mL Indeterminate: suggest serial studies if clinically indicated. Greater than 0.5 ng/mL Consistent with diagnosis of CO 61 Acute inflammation: >10.00 62 Desirable <100 Near Optimal 100-129 Borderline high 130-159 High 160-189 Very High >189 63 Desirable <150 Borderline high 150-199 High 200-499 Very High >500 64 Desirable <200 Borderline high 200-239 High >239 65 Low <40 Desirable: 40-60 High: >60 66 Desirable <100 Near Optimal 100-129 Borderline high 130-159 High 160-189 Very High >189 67 Please note: The following may produce a false positive D Dimer test: - Rheumatoid factor greater than 60 IU/ml - Plasma hemoglobin greater than 0.05 gm/dl - Bilirubin greater than 50 mg/dl - Lipids greater than 1000 mg/dl - FDP greater than 20 ug/ml 68 Because ethnic data is not always readily available, this report includes an eGFR for both -Americans and non- Americans. The National Kidney Disease Education Program (NKDEP) does not endorse the use of the MDRD equation for patients that are not between the ages of 18 and 70, are , have extremes of body size, muscle mass, or nutritional status, or are non- or non-. According to the National Kidney Foundation, irrespective of diagnosis, the stage of the disease is based on the level of kidney function: Stage Description GFR(mL/min/1.73 m(2)) 1 Kidney damage with normal or decreased GFR 90 2 Kidney damage with mild decrease in GFR 60-89 3 Moderate decrease in GFR 30-59 4 Severe decrease in GFR 15-29 5 Kidney failure <15 (or dialysis) 69 CKMB interpretation should be made in conjunction with clinical symptoms, patient history and EKG changes. 70 Reference Range and Interpretation: TnI (ng/mL) Interpretation Less Than 0.06 ng/mL Not supportive of diagnosis of CO 0.06 - 0.50 ng/mL Indeterminate: suggest serial studies if clinically indicated. Greater than 0.5 ng/mL Consistent with diagnosis of CO 71 HDL Interpretation: Undesirable: High Risk: Less than 40 mg/dL Desirable: Low Risk: Greater than 60 mg/dL 72 LDL Interpretation: Low Risk Optimal Level: LDL Less than 100 mg/dL Near or Above Optimal: LDL 100-129 mg/dL Borderline High Risk: LDL 130-159 mg/dL High Risk: LDL 160-189 mg/dL Very High Risk: LDL Greater than 189 mg/dL 73 HDL Interpretation: Undesirable: High Risk: Less than 40 MG/DL Desirable: Low Risk: Greater than 60 MG/DL 74 LDL Interpretation: Low Risk Optimal Level: LDL Less than 100 MG/DL Near or Above Optimal: LDL 100-129 MG/DL Borderline High Risk: LDL 130-159 MG/DL High Risk: LDL 160-189 MG/DL Very High Risk: LDL Greater than 189 MG/DL 75 Because ethnic data is not always readily available, this report includes an eGFR for both -Americans and non- Americans. The National Kidney Disease Education Program (NKDEP) does not endorse the use of the MDRD equation for patients that are not between the ages of 18 and 70, are , have extremes of body size, muscle mass, or nutritional status, or are non- or non-. According to the National Kidney Foundation, irrespective of diagnosis, the stage of the disease is based on the level of kidney function: Stage Description GFR(mL/min/1.73 m(2)) 1 Kidney damage with normal or decreased GFR 90 2 Kidney damage with mild decrease in GFR 60-89 3 Moderate decrease in GFR 30-59 4 Severe decrease in GFR 15-29 5 Kidney failure <15 (or dialysis) 76 Test Performed by: [place] [address] [employer] Teacher: Boni Sanchez III, M.D. 77 Serologic response to B. burgdorferi infection is not detected, but cannot rule out early infection during which low or undetectable antibody levels to B. burgdorferi may be present. If clinically indicated, a new serum specimen should be submitted in 7-14 days. Test Performed by: [address] [address] [employer] Aides Teacher: Boni Sanchez III, M.D. 78 Lymphopenia % 79 Anion gap measurement may be of limited value in the presence of any alkalosis, especially in a combined acid base disorder. . 80 A metabolite of Naproxen, O-desmethylnaproxen, has been shown to interfere with the Jendrassik-Bendena method for measuring total bilirubin. Samples from patients who have taken Naproxen have shown spurious elevation in total bilirubin levels. 81 Because ethnic data is not always readily available, this report includes an eGFR for both -Americans and non- Americans. The National Kidney Disease Education Program (NKDEP) does not endorse the use of the MDRD equation for patients that are not between the ages of 18 and 70, are , have extremes of body size, muscle mass, or nutritional status, or are non- or non-. According to the National Kidney Foundation, irrespective of diagnosis, the stage of the disease is based on the level of kidney function: Stage Description GFR(mL/min/1.73 m(2)) 1 Kidney damage with normal or decreased GFR 90 2 Kidney damage with mild decrease in GFR 60-89 3 Moderate decrease in GFR 30-59 4 Severe decrease in GFR 15-29 5 Kidney failure <15 (or dialysis) 82 CHOLESTEROL INTERPRETATION: Desirable: Less than 200 MG/DL Borderline-High Risk: 200-239 MG/DL High-Risk: 240 MG/DL and over 83 HDL INTERPRETATION: Undesirable: High Risk: Less than 40 MG/DL Desirable: Low Risk: Greater than 60 MG/DL 84 LDL INTERPRETATION: Low Risk Optimal Level: LDL Less than 100 MG/DL Near or Above Optimal: LDL 100-129 MG/DL Borderline High Risk: LDL 130-159 MG/DL High Risk: LDL 160-189 MG/DL Very High Risk: LDL Greater than 189 MG/DL Procedures Date CPT Code Description Status Comment 08/04/2018 64461 EKG Tracing & Interpretation Completed 04/26/2018 88096 ECHO Transthoracic, Real-Time 2D With Doppler Completed And Color Flow 04/26/2018 75844 ECHO Transthoracic, Real-Time 2D With Doppler Completed And Color Flow 04/24/2018 16937 EKG Tracing & Interpretation Completed 03/28/2018 25792 EKG Tracing & Interpretation Completed 03/17/2018 27559 EKG Tracing & Interpretation Completed 12/20/2017 01040 Stress Test Completed 12/07/2017 91767 EKG Tracing & Interpretation Completed 12/01/2017 01265 EKG Tracing & Interpretation Completed 11/18/2017 02217 ECHO Transthoracic, Real-Time 2D With Doppler Completed And Color Flow 12/14/2016 50792 Plethysmography Determination Lung Volumes & Completed Per Airway Resist 12/14/2016 91834 Pulmonary Function><Bronchodil Completed 12/07/2016 02192 ECHO Stress Test Incl Perf Contiuous ekg Completed Monitoring W/Phys Superv 11/19/2016 23493 Carotid Doppler,Bilateral Completed 11/18/2016 01867 ECHO Transthoracic, Real-Time 2D With Doppler Completed And Color Flow 11/16/2016 14708 EKG Tracing & Interpretation Completed 06/12/2015 27337 Stress Test Supervsn W/Out I/R Completed 06/12/2015 76743 Treadmill Interp/Report Only Completed 06/12/2015 80239 ECHO Transthoracic, Real-Time 2D With Doppler Completed And Color Flow 06/12/2015 05447 Stress ECHO Interpretation/Report Hospital Completed 01/09/2015 89527 ECHO Transthoracic, Real-Time 2D With Doppler Completed And Color Flow 12/24/2014 68500 EKG Tracing & Interpretation Completed 12/04/2014 04290 EKG, Interpretation Only Completed 04/11/2014 00734 Polysomnography Sleep Staging 4+ Parameters Completed W/Cpap 11/04/2013 62248 EKG, Interpretation Only Completed 11/03/2013 61419 IV Rx Trancath Therapy(Nitro/Katie) Completed 11/03/2013 37614 Percutaneous Transcatheter Placement Of Completed Intracoronary Stent 11/03/2013 02250 Revascularization Chronic Total Occlusion Completed Coronary Artery 11/03/2013 78749 Ptca W/Intracor Stent Completed 11/03/2013 31984 Ptca W/Intracor Stent-Addtl Vessl Completed 11/03/2013 13307 EKG, Interpretation Only Completed 11/03/2013 29299 Echocardiogram, Limited Study Completed 11/03/2013 89322 Cath PLMT&NJX L Ventriculog Img S&I Completed 11/03/2013 20834 Left Heart Cath. Incl S/I Coronaries, Angio S/I Completed V Gram If Done 06/27/2013 71171 Rad Exam; Fingers Completed 06/27/2013 21845 Rad Exam; Fingers Completed 06/27/2013 98159 Inject Tendon Sheath Or Ligament Aponeurosis Eg Completed Plantar Fascia 06/27/2013 45382 Inject Tendon Sheath Or Ligament Aponeurosis Eg Completed Plantar Fascia 10/31/2006 Colonoscopy Completed normal Encounters Type Date Location Provider CPT E/M Dx Office Visit 09/11/2018 1:30p [facility]ena Meza M.D. 17246 Z95.2 [facility] I35.0 I48.0 I10 N20.9 Office Visit 08/04/2018 9:00a [facility] Diane Blum, N.P. 18711 I10 Z95.2 I48.0 I35.0 R31.9 Office Visit 06/28/2018 2:40p [facility] Michael Velasquez, 88424 R31.9 - Santo Lee Office Visit 06/08/2018 2:40p [facility] Heena Meza M.D. 03672 Z95.2 [facility] I35.0 I48.0 Office Visit 05/12/2018 9:00a [facility] Diane Blum, 02582 I35.0 [employer] N.P. I48.0 Z95.2 I10 Office Visit 04/28/2018 2:30p [facility] Diane Blum, 51209 I35.0 [employer] Attendant N.P. I48.0 Z95.2 I10 R60.0 Office Visit 04/24/2018 4:20p [facility] Heena Meza M.D. 40397 I48.0 [facility] I35.0 Z95.2 I10 Office Visit 04/18/2018 8:15a [facility] [place] [id number] I10 Concession Stand Attendant Office Visit 04/05/2018 8:00a [facility] - Michael Velasquez, 58241 I48.0 [place] I35.0 I10 Office Visit 03/28/2018 12:45p [facility] Heena Meza M.D. 60216 I35.0 Barak Z95.2 I48.0 R60.0 Office Visit 03/21/2018 12:00p [facility] Diane Blum, 29374 I35.0 Con[facility] Stand Attendant N.P. Z95.2 I48.0 R60.0 I97.0 Office Visit 03/17/2018 4:20p [facility] Radha Meza M.D. 87284 I35.0 [facility] Z95.2 I48.0 R60.0 R50.9 G47.30 Office Visit 12/01/2017 1:50p [facility] Heena Meza M.D. 48907 I35.0 [facility] I10 E78.2 I95.1 Office Visit 10/05/2017 8:00a [facility] Michael Velasquez M.D. 02030 I10 - [place] E78.2 E66.9 Office Visit 06/22/2017 8:00a [facility] Michael Velasquez M.D. 42328 I10 - [place] E78.2 E66.9 Office Visit 06/03/2017 2:45p [facility] Heena Meza M.D. 14424 I10 I35.0 I25.10 R06.02 Office Visit 03/16/2017 11:20a [facility] Michael Velasquez 00299 M13.0 - [place] I10 R06.02 E78.2 Office Visit 03/02/2017 11:00a [facility] Michael Velasquez 19988 M13.0 - [place] R06.02 I10 E78.2 Office Visit 12/29/2016 8:00a [facility] Michael Velasquez 64444 R06.02 - [place] Office Visit 12/21/2016 2:15p [facility] Radha Meza M.D. 28329 R06.02 [facility] I35.0 I25.10 I10 Office Visit 12/07/2016 4:00p [facility] Michael Velasquez 55661 J45.909 Medicine - [place] Gaurav Lee G47.33 Office Visit 11/16/2016 8:30a [facility] Heena Meza M.D. 42266 I25.119 [facility] I10 E78.2 R06.02 I35.0 G47.33 R09.89 Office Visit 11/10/2016 7:40a [facility] Michael Velasquez M.D. 31288 I10 - [place] E78.2 E66.9 M51.16 M50.10 L98.9 G47.09 Z00.00 Z23 Office Visit 04/23/2016 8:40a [facility] Michael Velasquez M.D. 51981 I10 - [place] E78.2 R73.01 E66.9 Office Visit 03/15/2016 10:30a [facility] Seferino Peña, 88854 M51.26 Of Concession Stand Attendant M.DEsther Office Visit 02/18/2016 2:00p [facility] Seferino Peña, 97292 M51.26 Of [facility] Attendant M.DEsther M43.17 Office Visit 02/06/2016 8:20a [facility] Michael Velasquez 10094 M51.16 Medicine - [place] Office Visit 01/21/2016 11:20a [facility] Michael Velasquez 11286 M51.16 Medicine - [place] Office Visit 11/28/2015 8:00a [facility] Michael Velasquez 54372 E78.2 Medicine - [place] I10 E66.9 M51.36 Office Visit 10/14/2015 9:00a [facility] Heena Meza M.D. 58491 I35.0 [facility] I25.10 E78.2 I10 Office Visit 06/27/2015 11:30a [facility] Heena Meza M.D. 02180 424.1 [facility] 414.01 780.8 Office Visit 06/26/2015 11:10a [facility] Jes Galarza 68645 790.21 - [place] 560.9 272.2 719.46 564.09 278.00 Office Visit 12/24/2014 8:30a [facility] Heena Meza M.D. 27467 424.1 [facility] 412 414.01 401.1 Office Visit 12/06/2014 10:49a [facility],RENATA Reeder 74432 560.9 Hospitalists 412 Office Visit 12/04/2014 10:48a [facility],RENATA Reeder 04497 560.9 Hospitalists 412 Office Visit 09/03/2014 11:30a [facility] Jes Galarza 30206 555.1 - [place] Office Visit 07/31/2014 10:50a [facility] Jes Galarza 26352 278.00 - [place] 722.93 272.2 401.1 V04.81 Office Visit 05/15/2014 8:30a [facility] [place] [address] 401.9 [facility] Office Visit 02/28/2014 4:08p [facility] Mic BRONSON Finley, 36894 780.57 MEssence 786.09 401.9 Office Visit 12/21/2013 10:15a [facility] Heena Meza M.D. 32428 414.01 [facility] 401.1 272.2 424.1 Office Visit 11/15/2013 2:20p [facility] Kait Espinoza D.O. 41288 410.90 411.1 414.01 401.1 272.2 424.1 Office Visit 11/04/2013 10:26a [facility] Kait Espinoza 14751 411.1 D.O. Office Visit 11/03/2013 10:26a [facility] Kait Espinoza 03318 411.1 D.O. Office Visit 10/18/2013 2:30p [facility] Jes Galarza M.D. 63677 401.9 - [place] Office Visit 06/27/2013 10:45a [facility] Kait Townsend 36705 719.44 Of [facility] AT Blakely Rosa 727.03 Office Visit 06/11/2013 10:40a [facility] Michael Velasquez 52489 401.1 - [place] 272.2 790.6 722.93 719.46 V76.44 Office Visit 10/30/2012 12:40p [facility] Michael Velasquez 81512 722.93 Medicine - [place] 272.2 Office Visit 09/27/2012 8:40a [facility] Michael Velasquez 72931 401.1 - [place] 272.2 790.6 727.03 715.00 Office Visit 07/31/2012 3:00p [facility] Nicolás Hargrove 43060 709.9 - [place] Office Visit 06/13/2012 9:20a [facility] Michael Velasquez, 87242 401.1 - [place] 477.9 424.0 278.00 Office Visit 10/18/2011 9:30a DO Not Use Concession Stand Attendant AT Jes Galarza M.D. 00662 278.00 [place] 401.1 722.93 477.9 691.8 Office Visit 06/29/2011 8:00a DO Not Use Concession Stand Attendant AT Michael Velasquez M.D. 45515 401.1 [place] 477.9 722.93 V72.62 278.00 709.9 Plan of Care Future Appointment(s):10/11/2018 8:00 am - Michael Velasquez M.D. 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
[2018-10-10] MEDS ORDERED: Morphine VIAL* 4 MG/ML VIAL (1 ml vial) IV ONE (20:07)
[2018-10-10] MEDS ORDERED: Labetalol IV* 5 MG/ML 20 ML VIAL IV PUSH ONE (20:07)
--- NOTE | 2018-10-10 20:07 | ED ---
Hypertension - HPI Summary HPI Summary: Pt is a 58 y/o M presenting to the ED with a chief complaint of a headache and high blood pressure. He has had headaches since this afternoon, he monitors his blood pressure at home due to taking two different medicines for it, and feels woozy when he stands. The pt denies pain, vomiting, nausea, and photophobia. The pt reports he had an TX in the past that he did not have pain with, and had blocked kidneys a couple of weeks ago that he did not have pain with but made his blood pressure go up. - History of Current Complaint Chief Complaint: EDHypertension Stated Complaint: HIGH BLOOD PRESSURE Time Seen by Provider: 10/10/18 19:54 Hx Obtained From: Patient Onset/Duration: Started Hours Ago Timing: Constant Aggravating Factor(s): Nothing Alleviating Factor(s): Nothing Associated Signs & Symptoms: Negative - pain, vision changes, Headaches - Allergies/Home Medications Allergies/Adverse Reactions: Allergies Allergy/AdvReac Type Severity Reaction Status Date / Time amlodipine [From [facility]] Allergy Edema Verified 09/08/18 10:59 colchicine Allergy Diarrhea Verified 09/08/18 10:59 PMH/Surg Hx/FS Hx/Imm Hx Previously Healthy: No Endocrine/Hematology History: Denies: Hx Diabetes Cardiovascular History: Reports: Hx Angina, Hx Atrial Fibrillation, Hx Coronary Artery Disease, Hx Hypercholesterolemia, Hx Hypertension, Hx Valvular Heart Disease - AORTIC VALVE REPLACED, Other Cardiovascular Problems/Disorders - SEES DR. 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 Denies: Hx Ulcer History: Reports: Hx Kidney Stones Denies: Hx Acute Renal Failure, Hx Renal Disease Musculoskeletal History: Reports: Hx Arthritis - knees, back, hands, Hx Rheumatoid Arthritis, Hx Back Problems - fractures, degenerated disks, bone spurs, Hx Tendonitis - elbow, Other Musculoskeletal History - DDD Denies: Hx Scoliosis Sensory History: Reports: Hx Contacts or Glasses Denies: Hx Cataracts, Hx Hearing Aid Opthamlomology History: Reports: Hx Contacts or Glasses Denies: Hx Cataracts Neurological History: Reports: Other Neuro Impairments/Disorders - PAIN CLINIC PT Denies: Hx Developmental Delay, Hx Headaches, Hx Migraine, Hx Nerve Disease, Hx Seizures, Hx Spinal Cord Injury, Hx Transient Ischemic Attacks (TIA) Psychiatric History: Denies: Hx Panic Disorder - Surgical History Surgery Procedure, Year, and Place: RIGHT KNEE ARTHROSCOPES X 3; bowel surgery endometrial reattachment; T&A; CARDIAC STENTS X 2- PATIENT WILL BRING CARDS TO BE SCANNED IN (PER CARDIAC CATH REPORT A PROMUS PREMIER STENT AND A PROMUS ELEMENT STENT WERE PLACED) Hx Anesthesia Reactions: No Infectious Disease History: No Infectious Disease History: Denies: Hx Clostridium Difficile, Hx Hepatitis, Hx Human Immunodeficiency Virus (HIV), Hx of Known/Suspected MRSA, Hx Shingles, Hx Tuberculosis, Hx Known/ Suspected VRE, Hx Known/Suspected VRSA, History Other Infectious Disease, Traveled Outside the [place] in Last 30 Days - Family History Known Family History: Positive: Cardiac Disease - Social History Alcohol Use: Weekly Alcohol Amount: 2-3 DRINKS Hx Substance Use: No Substance Use Type: Reports: None Hx Tobacco Use: Yes Smoking Status (MU): Never Smoked Tobacco Type: Cigarettes Amount Used/How Often: 2 PPD X 13 YEARS Length of Time of Smoking/Using Tobacco: 15 years Have You Smoked in the Last Year: No Review of Systems Negative: Fever Negative: Photophobia Negative: Vomiting, Nausea Musculoskeletal: Negative - pain All Other Systems Reviewed And Are Negative: Yes Physical Exam - Summary Physical Exam Summary: VITAL SIGNS: Reviewed. GENERAL: Patient is a well-developed and nourished male who is lying comfortable in the stretcher. Patient is not in any acute respiratory distress. HEAD AND FACE: No signs of trauma. No ecchymosis, hematomas or skull depressions. No sinus tenderness. EYES: PERRLA, EOMI x 2, No injected conjunctiva, no nystagmus. EARS: Hearing grossly intact. Ear canals and tympanic membranes are within normal limits. MOUTH: Oropharynx within normal limits. NECK: Supple, trachea is midline, no adenopathy, no JVD, no carotid bruit, no c- spine tenderness, neck with full ROM. CHEST: Symmetric, no tenderness at palpation LUNGS: Clear to auscultation bilaterally. No wheezing or crackles. CVS: Regular rate and rhythm, S1 and S2 present, no murmurs or gallops appreciated. ABDOMEN: Soft, non-tender. No signs of distention. No rebound no guarding, and no masses palpated. Bowel sounds are normal. EXTREMITIES: FROM in all major joints, no edema, no cyanosis or clubbing. NEURO: Alert and oriented x 3. No acute neurological deficits. Speech is normal and follows commands. SKIN: Dry and warm GCS: 15 Triage Information Reviewed: Yes Vital Signs On Initial Exam: Initial Vitals Temp Pulse Resp BP Pulse Ox 97.9 F 71 20 185/99 93 10/10/18 19:15 10/10/18 19:15 10/10/18 19:15 10/10/18 19:15 10/10/18 19:15 Vital Signs Reviewed: Yes Diagnostics - Vital Signs Vital Signs Temp Pulse Resp BP Pulse Ox 10/10/18 19:15 97.9 F 71 20 185/99 93 - Laboratory Result Diagrams: 10/10/18 20:20 10/10/18 20:20 Lab Statement: Any lab studies that have been ordered have been reviewed, and results considered in the medical decision making process. - CT Head CT CT Interpretation Completed By: Radiologist Summary of CT Findings: No acute intracranial abnormality. ED physician has reviewed this report. Re-Evaluation - Re-Evaluation 1 Re-Evaluation Time: 21:55 Change: Improved Comment: The pt's headache feels better and his blood pressure has gone down. He will be discharged with instructions to follow up with his PCP within 24 hours and to return to the ED with any new or worsening symptoms. He will also be instructed to increase his colace from 25mg to 50mg. Hypertension Course/Dx - Course Course Of Treatment: Pt is a 58 y/o M presenting to the ED with a chief complaint of HTN. He reports headaches, feeling woozy, and monitors his BP at home due to taking 2 different medicines for it. He has a hx of TX, blocked kidneys, and heart surgery. - Diagnoses Provider Diagnoses: HTN (hypertension), Headache Discharge - Sign-Out/Discharge Documenting (check all that apply): Patient Departure - Discharge Plan Condition: Stable Disposition: HOME Referrals: Michael Velasquez MD [Primary Care Provider] - Additional Instructions: PLEASE RETURN TO THE EMERGENCY DEPARTMENT WITH ANY NEW OR WORSENING SYMPTOMS. FOLLOW UP WITH YOUR PRIMARY CARE PROVIDER WITHIN THE NEXT 24 HOURS. INCREASE YOUR COLACE MEDICATION FROM 25MG TO 50MG BEGINNING IN THE MORNING. - Billing Disposition and Condition Condition: STABLE Disposition: Home - Attestation Statements Document Initiated by Whit: Yes Documenting Scribe: Mirna Mittal Provider For Whom Whit is Documenting (Include Credential): Miguel Hurd MD. Scribe Attestation: Mirna Alfaro, scribed for Miguel Hurd MD. on 10/11/18 at 0558. Scribe Documentation Reviewed: Yes Provider Attestation: The documentation as recorded by the cristhianibe, Mirna Mittal accurately reflects the service I personally performed and the decisions made by , Miguel Hurd MD. Status of Scribe Document: Viewed
[2018-10-10] MEDS ORDERED: Metoclopramide IV* 5 MG/ML 2 ML VIAL IV SLOW PU ONE (20:08)
[2018-10-10] MEDS ORDERED: hydrALAZINE IV* 20 MG/ML VIAL IV SLOW PU ONE (20:25)
[2018-10-10] MEDS ORDERED: hydrALAZINE IV* 20 MG/ML VIAL ONE (20:26)
[2018-10-10 20:28] LABS: ABS Basophils 0.1 10^3/ul (0-0.2); ABS Eosinophils 0.1 10^3/ul (0-0.6); ABS Lymphocytes 1.3 10^3/ul (1.0-4.8); ABS Monocytes 0.4 10^3/ul (0-0.8); ABS Nucleated RBC 0 10^3/ul; Eosinophil % 2.1 %; Hematocrit 44 % (42-52); Hemoglobin 14.8 g/dl (14.0-18.0); Mean Corpuscular HGB Conc 34 g/dl (31-36); Mean Corpuscular Hemoglobin 34 pg (27-31); Mean Corpuscular Volume 101 fL (80-94); Mean Platelet Volume 7.7 fL (7.4-10.4); Nucleated Red Blood Cells % 0; Platelet Count 190 10^3/ul (150-450); Red Blood Count 4.36 10^6/ul (4.00-5.40); Red Cell Distribution Width 15 % (10.5-15)
[2018-10-10 20:36] LABS: INR 3.97 (0.77-1.02)
[2018-10-10 20:47] LABS: EGFR Non-African American 73.1 (>60)
[2018-10-10] MEDS ORDERED: Acetaminophen ADULT LIQ* 650 MG/20.3 ML UDC PO ONE (21:59)
[2018-10-10 22:19] VITALS: BP 115/67
== END 2018-10-10 22:18 | disposition home or self-care (01) ==
LOC: ED 19:13
DX: I10 Essential (primary) hypertension (principal); R51 Headache; I25.119 Atherosclerotic heart disease of native coronary artery with unspecified angina pectoris; Z95.5 Presence of coronary angioplasty implant and graft; Z88.8 Allergy status to other drugs, medicaments and biological substances; Z82.49 Family history of ischemic heart disease and other diseases of the circulatory system; Z87.891 Personal history of nicotine dependence
CPT/HCPCS: 36415; 70450; 80053; 85025; 85610; 85730; 96374; 96375; 99283; A9270-GY; J0360; J2270; J2765

== ENCOUNTER 2018-10-20 13:17 | Emergency (ER) | payer BC ==
[2018-10-20 17:50] LABS: ABS Basophils 0 10^3/ul (0-0.2); ABS Eosinophils 0 10^3/ul (0-0.6); ABS Lymphocytes 1.3 10^3/ul (1.0-4.8); ABS Monocytes 0.7 10^3/ul (0-0.8); ABS Neutrophils 2.5 10^3/ul (1.5-7.7); ABS Nucleated RBC 0 10^3/ul; Eosinophil % 0.9 %; Hematocrit 46 % (42-52); Hemoglobin 15.5 g/dl (14.0-18.0); Lymphocyte % 27.5 %; Mean Corpuscular HGB Conc 34 g/dl (31-36); Mean Corpuscular Hemoglobin 34 pg (27-31); Mean Corpuscular Volume 101 fL (80-94); Mean Platelet Volume 7.9 fL (7.4-10.4); Nucleated Red Blood Cells % 0; Platelet Count 208 10^3/ul (150-450); Red Blood Count 4.55 10^6/ul (4.00-5.40); Red Cell Distribution Width 16 % (10.5-15); White Blood Count 4.6 10^3/ul (3.5-10.8)
[2018-10-20 18:06] LABS: Albumin 4.7 g/dL (3.2-5.2); BUN/Creatinine Ratio 26.7 (8-20); Calcium 9.5 mg/dL (8.6-10.3); EGFR Non-African American 64.4 (>60); Globulin 2.4 g/dL (2-4); Total Bilirubin 0.4 mg/dL (0.2-1.0); Total Protein 7.1 g/dL (6.4-8.9)
[2018-10-20 18:10] LABS: Activated Partial Thrombo Time 54.6 seconds (26.0-36.3); INR 3.29 (0.77-1.02)
[2018-10-20 18:14] LABS: C Reactive Protein 3.22 mg/L (<8.01)
--- NOTE | 2018-10-20 18:29 | ED ---
Dizziness - HPI Summary HPI Summary: 58-year-old male presents with bruising of left hand since yesterday. He states the bruising has been increasing. He denies any new injury. He was working with wood a couple days ago. He is right-handed. He also states he's been having headache for the past 2 weeks. Is not worst headache of his life. Headache is located top of his head. he had a negative CT a week ago when he was having this headache. Denies any sinus congestion. Denies any vision changes. He admits to dizziness when he stands up. dizziness only occurs immediately after standing. he has not passed out. He states he's been having fluctuating blood pressure. blood pressure was elevated so they increase his blood pressure medication and then it dropped too low so they had to her reduce it again. This is not the worst headache of his life. He denies any fevers. No neck pain. No chest pain or shortness of breath. No bowel pain nausea vomiting. No fevers. He states he has pain over where the bruising is. He states he had INR checked today is 2.2. He has a history of valvular replace is on Coumadin for such and he also has history of A. fib. He is on amiodarone for A. fib. - History Of Current Complaint Chief Complaint: EDDizziness Stated Complaint: LOW BP AND BRUISING IN LEFT HAND Time Seen by Provider: 10/20/18 17:42 - Allergies/Home Medications Allergies/Adverse Reactions: Allergies Allergy/AdvReac Type Severity Reaction Status Date / Time amlodipine [From [facility]] Allergy Edema Verified 09/08/18 10:59 colchicine Allergy Diarrhea Verified 09/08/18 10:59 PMH/Surg Hx/FS Hx/Imm Hx Endocrine/Hematology History: Denies: Hx Diabetes Cardiovascular History: Reports: Hx Angina, Hx Atrial Fibrillation, Hx Coronary Artery Disease, Hx Hypercholesterolemia, Hx Hypertension, Hx Valvular Heart Disease - AORTIC VALVE REPLACED, Other Cardiovascular Problems/Disorders - SEES DR. 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 Denies: Hx Ulcer History: Reports: Hx Kidney Stones Denies: Hx Acute Renal Failure, Hx Renal Disease Musculoskeletal History: Reports: Hx Arthritis - knees, back, hands, Hx Rheumatoid Arthritis, Hx Back Problems - fractures, degenerated disks, bone spurs, Hx Tendonitis - elbow, Other Musculoskeletal History - DDD Denies: Hx Scoliosis Sensory History: Reports: Hx Contacts or Glasses Denies: Hx Cataracts, Hx Hearing Aid Opthamlomology History: Reports: Hx Contacts or Glasses Denies: Hx Cataracts Neurological History: Reports: Other Neuro Impairments/Disorders - PAIN CLINIC PT Denies: Hx Developmental Delay, Hx Headaches, Hx Migraine, Hx Nerve Disease, Hx Seizures, Hx Spinal Cord Injury, Hx Transient Ischemic Attacks (TIA) Psychiatric History: Denies: Hx Panic Disorder - Surgical History Surgery Procedure, Year, and Place: RIGHT KNEE ARTHROSCOPES X 3; bowel surgery endometrial reattachment; T&A; CARDIAC STENTS X 2- PATIENT WILL BRING CARDS TO BE SCANNED IN (PER CARDIAC CATH REPORT A PROMUS PREMIER STENT AND A PROMUS ELEMENT STENT WERE PLACED) Hx Anesthesia Reactions: No Infectious Disease History: No Infectious Disease History: Denies: Hx Clostridium Difficile, Hx Hepatitis, Hx Human Immunodeficiency Virus (HIV), Hx of Known/Suspected MRSA, Hx Shingles, Hx Tuberculosis, Hx Known/ Suspected VRE, Hx Known/Suspected VRSA, History Other Infectious Disease, Traveled Outside the [place] in Last 30 Days - Family History Known Family History: Positive: Cardiac Disease - Social History Alcohol Use: Weekly Alcohol Amount: 2-3 DRINKS Hx Substance Use: No Substance Use Type: Reports: None Hx Tobacco Use: Yes Smoking Status (MU): Never Smoked Tobacco Type: Cigarettes Amount Used/How Often: 2 PPD X 13 YEARS Length of Time of Smoking/Using Tobacco: 15 years Have You Smoked in the Last Year: No Review of Systems Negative: Fever Negative: Chest Pain Negative: Shortness Of Breath Positive: Bruising Neurological: Other - dizziness Positive: Headache All Other Systems Reviewed And Are Negative: Yes Physical Exam Triage Information Reviewed: Yes Vital Signs On Initial Exam: Initial Vitals Temp Pulse Resp BP Pulse Ox 97.7 F 78 20 147/88 96 10/20/18 13:21 10/20/18 13:21 10/20/18 13:21 10/20/18 13:21 10/20/18 13:21 Vital Signs Reviewed: Yes Appearance: Positive: Well-Appearing Skin: Positive: Warm, Dry Head/Face: Positive: Normal Head/Face Inspection Eyes: Positive: Normal, EOMI, SHIRIN, Conjunctiva Clear ENT: Positive: Normal ENT inspection, Pharynx normal, TMs normal Respiratory/Lung Sounds: Positive: Clear to Auscultation, Breath Sounds Present Cardiovascular: Positive: Normal, RRR Abdomen Description: Positive: Nontender, Soft Bowel Sounds: Positive: Present Musculoskeletal: Positive: Strength/ROM Intact - left hand, Other - brusing to left 3-4th digit, capillary refill<2secs Neurological: Positive: Sensory/Motor Intact, Alert, Oriented to Person Place, Time, CN Intact II-III Psychiatric: Positive: Normal - Lola Coma Scale Best Eye Response: 4 - Spontaneous Best Motor Response: 6 - Obeys Commands Best Verbal Response: 5 - Oriented Coma Scale Total: 15 Diagnostics - Vital Signs Vital Signs Temp Pulse Resp BP Pulse Ox 10/20/18 18:07 71 152/92 10/20/18 17:05 97.7 F 67 18 141/92 95 10/20/18 15:00 98 F 85 18 133/75 98 10/20/18 13:21 97.7 F 78 20 147/88 96 - Laboratory Lab Results: Lab Results 10/20/18 10/20/18 10/20/18 Range/Units 17:43 17:43 17:43 WBC 4.6 (3.5-10.8) 10^3/ul RBC 4.55 (4.00-5.40) 10^6/ul Hgb 15.5 (14.0-18.0) g/dl Hct 46 (42-52) % MCV 101 H (80-94) fL MCH 34 H (27-31) pg MCHC 34 (31-36) g/dl RDW 16 H (10.5-15) % Plt Count 208 (150-450) 10^3/ul MPV 7.9 (7.4-10.4) fL Neut % (Auto) 54.8 % Lymph % (Auto) 27.5 % [place] % (Auto) 15.9 % Eos % (Auto) 0.9 % Baso % (Auto) 0.9 % Absolute Neuts (auto) 2.5 (1.5-7.7) 10^3/ul Absolute Lymphs (auto) 1.3 (1.0-4.8) 10^3/ul Absolute Monos (auto) 0.7 (0-0.8) 10^3/ul Absolute Eos (auto) 0 (0-0.6) 10^3/ul Absolute Basos (auto) 0 (0-0.2) 10^3/ul Absolute Nucleated RBC 0 10^3/ul Nucleated RBC % 0 INR (Anticoag Therapy) (0.77-1.02) APTT (26.0-36.3) seconds Sodium 136 (135-145) mmol/L Potassium 4.0 (3.5-5.0) mmol/L Chloride 105 (101-111) mmol/L Carbon Dioxide 24 (22-32) mmol/L Anion Gap 7 (2-11) mmol/L BUN 31 H (6-24) mg/dL Creatinine 1.16 (0.67-1.17) mg/dL Est GFR ( Amer) 78.0 (>60) Est GFR (Non-Af Amer) 64.4 (>60) BUN/Creatinine Ratio 26.7 H (8-20) Glucose 134 H (70-100) mg/dL Lactic Acid 1.0 (0.5-2.0) mmol/L Calcium 9.5 (8.6-10.3) mg/dL Total Bilirubin 0.40 (0.2-1.0) mg/dL AST 23 (13-39) U/L ALT 28 (7-52) U/L Alkaline Phosphatase 49 (34-104) U/L Troponin I 0.00 (<0.04) ng/mL C-Reactive Protein 3.22 (<8.01) mg/L Total Protein 7.1 (6.4-8.9) g/dL Albumin 4.7 (3.2-5.2) g/dL Globulin 2.4 (2-4) g/dL Albumin/Globulin Ratio 2.0 (1-3) 10/20/ Range/Units 17:43 WBC (3.5-10.8) 10^3/ul RBC (4.00-5.40) 10^6/ul Hgb (14.0-18.0) g/dl Hct (42-52) % MCV (80-94) fL MCH (27-31) pg MCHC (31-36) g/dl RDW (10.5-15) % Plt Count (150-450) 10^3/ul MPV (7.4-10.4) fL Neut % (Auto) % Lymph % (Auto) % [place] % (Auto) % Eos % (Auto) % Baso % (Auto) % Absolute Neuts (auto) (1.5-7.7) 10^3/ul Absolute Lymphs (auto) (1.0-4.8) 10^3/ul Absolute Monos (auto) (0-0.8) 10^3/ul Absolute Eos (auto) (0-0.6) 10^3/ul Absolute Basos (auto) (0-0.2) 10^3/ul Absolute Nucleated RBC 10^3/ul Nucleated RBC % INR (Anticoag Therapy) 3.29 H (0.77-1.02) APTT 54.6 H (26.0-36.3) seconds Sodium (135-145) mmol/L Potassium (3.5-5.0) mmol/L Chloride (101-111) mmol/L Carbon Dioxide (22-32) mmol/L Anion Gap (2-11) mmol/L BUN (6-24) mg/dL Creatinine (0.67-1.17) mg/dL Est GFR ( Amer) (>60) Est GFR (Non-Af Amer) (>60) BUN/Creatinine Ratio (8-20) Glucose (70-100) mg/dL Lactic Acid (0.5-2.0) mmol/L Calcium (8.6-10.3) mg/dL Total Bilirubin (0.2-1.0) mg/dL AST (13-39) U/L ALT (7-52) U/L Alkaline Phosphatase (34-104) U/L Troponin I (<0.04) ng/mL C-Reactive Protein (<8.01) mg/L Total Protein (6.4-8.9) g/dL Albumin (3.2-5.2) g/dL Globulin (2-4) g/dL Albumin/Globulin Ratio (1-3) Result Diagrams: 10/20/18 17:43 10/20/18 17:43 Lab Statement: Any lab studies that have been ordered have been reviewed, and results considered in the medical decision making process. - CT brain CT Interpretation Completed By: Radiologist Summary of CT Findings: IMPRESSION: No acute intracranial abnormality. 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 He states he's been having fluctuating blood pressure. He states that he feels dizzy when he stands up. No chest pain or shortness of breath. He is on coumadin for a valvular replacement. noticed some bruising to his left hand that has increased. No injury. Has pain at the site. Full range of motion. On exam lungs clear to auscultation. Normal neuro exam. Has bruising noted to left hand. No evidence of cellulitis. INR is 3.2. Platelets are normal. Discussed bruising likely due from INR being elevated but is a self-contained areas to does not need any intervention at this time. did have a negative CT a week ago but headache has persisted and with elevated inr will get another CT. Vitals are not orthostatic. CT brain normal. headache improved with tyenlol. discussed case with dr patel. patient says recently restart spirolactone so likely causing dizziness with standing. told to follow up with primary. patient understand and agrees with plan. - Diagnoses Differential Diagnosis/HQI/PQRI: Benign Paroxysmal Positional Vertigo, Hypovolemia, Metabolic Abnormality Provider Diagnoses: Bruising, Dizziness, Headache Discharge - Sign-Out/Discharge Documenting (check all that apply): Patient Departure - Discharge Plan Condition: Good Disposition: HOME Patient Education Materials: Ecchymosis (ED) Referrals: Michael Velasquez MD [Primary Care Provider] - Additional Instructions: drink plenty of fluids Stand up slowly place ice on hand, elevate Take tyenlol every 6 hours for pain Follow up with primary within 5 days Return to ED if develop any new or worsening symptoms - Billing Disposition and Condition Condition: GOOD Disposition: Home
[2018-10-20] MEDS: Morphine VIAL* 4 MG/ML VIAL (1 ml vial) IV ONE (19:18)
[2018-10-20] MEDS: Acetaminophen TAB* 325 MG PO ONE (19:23)
[2018-10-20] MEDS: NS 0.9% 1000 ML* 1,000 ML IV ONE (19:23)
[2018-10-20 20:33] VITALS: BP 136/79
== END 2018-10-20 20:49 | disposition home or self-care (01) ==
LOC: ED 13:17
DX: S60.222A Contusion of left hand, initial encounter (principal); R42 Dizziness and giddiness; R51 Headache; I48.91 Unspecified atrial fibrillation; Z79.01 Long term (current) use of anticoagulants; X58.XXXA Exposure to other specified factors, initial encounter; Y92.9 Unspecified place or not applicable; Z95.2 Presence of prosthetic heart valve; Z87.891 Personal history of nicotine dependence
CPT/HCPCS: 36415; 70450; 80053; 83605; 84484; 85025; 85610; 85730; 86140; 93005; 96361; 96374; 99283; A9270-GY

== ENCOUNTER 2022-06-08 10:30 | Observation (INO) ==
[~2022-06-08 10:30] MED LIST changes: -Buffered Lidocaine 0.9% SYRIN* 5 ML/SYR SYRINGE INTRADERM ONE; +Buffered Lidocaine 1% SYRIN 1 ml INTRADERM ONE; +HYDROmorphone 1 MG/1 ML SYRINGE IV PRN; +Lactated Ringers 1000 ml BAG 1,000 ML IV SCH; +Naloxone 0.4 mg VIAL 0.4 mg/ml 1 ml VIAL IV PRN; +Prochlorperazine 5 mg/ml 2 ml VIAL (10 mg) IV PRN; -Sodium Citrate/Citric Acid* 15 ML UDC PO ONE
[2022-06-08] MEDS ORDERED: Propofol 10 MG/ML 20 ML BTL ONE (12:17)
[2022-06-08] MEDS ORDERED: fentaNYL 100 mcg/2 ml 50 MCG/ML VIAL ONE ×2 (12:17→15:29)
[2022-06-08] MEDS ORDERED: Lidocaine 2% PF 5 ML VIAL ONE (12:17)
[2022-06-08] MEDS ORDERED: Dexamethasone IV 4 MG/ML VIAL 1 ml VIAL ONE (12:17)
[2022-06-08] MEDS ORDERED: Midazolam 2 mg/2 ml VIAL 1 mg/ml 2 ml VIAL (2 mg) ONE (12:17)
[2022-06-08] MEDS ORDERED: Ondansetron 4 mg VIAL 2 MG/ML 2 ml VIAL ONE (12:17)
[2022-06-08] MEDS ORDERED: ceFAZolin 2 GM in NS PREMIX 2 GM/100 ML BAG IVPB ONE (12:24)
[2022-06-08] MEDS ORDERED: Rocuronium 50 mg VIAL 10 mg/ml 5 ml VIAL (50 mg) ONE (14:12)
[2022-06-08] MEDS ORDERED: ROPIVACAINE 5 MG/ML 30 ML BTL (0.5%) ONE (14:26)
[2022-06-08] MEDS ORDERED: HYDROmorphone 0.5 MG/0.5 ML SYRINGE ONE ×2 (15:09→15:49)
[2022-06-08] MEDS ORDERED: Phenylephrine IV 10 MG/ML 1 ml VIAL ONE (15:13)
[2022-06-08] MEDS ORDERED: Sterile Water for Inj 10 ML ONE (15:19)
[2022-06-08] MEDS ORDERED: Lactulose 30 ml UDC PO PRN (15:56)
[2022-06-08] MEDS ORDERED: Ondansetron 4 mg VIAL 2 MG/ML 2 ml VIAL IV PRN (15:56)
[2022-06-08] MEDS ORDERED: Ondansetron ODT 4 mg TAB 4 MG TAB PO PRN (15:56)
[2022-06-08] MEDS ORDERED: Morphine 2 MG/ML SYRINGE IV PRN (15:56)
[2022-06-08] MEDS ORDERED: Magnesium Hydroxide LIQ 30 ML UDC PO PRN (15:56)
[2022-06-08] MEDS ORDERED: Lactated Ringers 1000 ml BAG 1,000 ML IV SCH (16:00)
[2022-06-08] MEDS ORDERED: Metoprolol Tartrate 5 mg VIAL 5 ml VIAL (1 mg/ml) ONE (16:04)
[2022-06-09] MEDS: Magnesium Hydroxide LIQ 30 ML UDC PO SCH ×2 (00:29→08:58)
[2022-06-09] MEDS: NFT: ICOSAPENT ETHYL 1 GM CAPSULE (NF) PO SCH ×2 (00:31→08:51)
[2022-06-09] MEDS: ceFAZolin 1 GM ADVAN 1 GM in NS 0.9% 50 ML 50 ML IVPB SCH ×3 (00:31→14:40)
[2022-06-09 05:41] LABS: Hematocrit 38 % (42-52); Hemoglobin 13.1 g/dL (14.0-18.0); Mean Platelet Volume 7.4 fL (7.4-10.4); Platelet Count 212 10^3/uL (150-450)
[2022-06-09 06:33] LABS: Calcium 8.7 mg/dL (8.6-10.3); Potassium 4.2 mmol/L (3.5-5.0); eGFR CKD-EPI 79.3 (>60)
[2022-06-09] MEDS ORDERED: Vitamin THERAPEUTIC TAB PO SCH (09:00)
[2022-06-09] MEDS ORDERED: COENZYME Q10 100 MG PO SCH (09:00)
[2022-06-09 11:23] VITALS: BP 118/78
[2022-06-09] MEDS ORDERED: Aspirin EC 81 mg TAB.EC (enteric coated) PO SCH (21:00)
== END 2022-06-09 16:05 | disposition home or self-care (01) ==
LOC: INTOOBSV 11:42 → AA 11:42 → SSU 21:45
PROVIDERS: ADMIT Orthopaedic Surgery Adult Reconstructive Orthopaedic Surgery; ATTEND Orthopaedic Surgery Adult Reconstructive Orthopaedic Surgery